=== PATIENT | male | born 1940 | race Caucasian/White ===

== ENCOUNTER 2017-12-03 02:39 | Inpatient (IN) | payer MEDICARE, MEDICAID ==
[2017-12-03] MEDS ORDERED: Magnesium Sulfate 1 gm in D5W 1 GM/100 ML BAG IVPB ONE (02:54)
[2017-12-03] MEDS ORDERED: Albuterol-Ipratrop 3 mg / 0.5 (3 ml) UD INH STA ×2 (02:54)
[2017-12-03] MEDS ORDERED: Albuterol-Ipratrop 3 mg / 0.5 (3 ml) UD ONE (03:01)
[2017-12-03] MEDS ORDERED: Magnesium Sulfate 1 gm in D5W 2 GM/200 ML BAG IVPB ONE (03:02)
[2017-12-03 03:31] LABS: BASO # 0.1 K/uL (0.0-0.2); BASO % 0.5 % (0.0-2.0); EOS # 1.1 K/uL (0.0-0.7); EOS % 8.7 % (0.0-4.0); HEMOGLOBIN 14.8 g/dL (12.0-18.0); LYMPH # 2.7 K/uL (1.0-4.3); LYMPH % 21.9 % (20.0-40.0); MEAN CELL VOLUME 94.1 fL (80.0-94.0); MEAN CORPUSCULAR HEMOGLOBIN 32.7 pg (27.0-31.0); MEAN CORPUSCULAR HGB CONC 34.8 g/dL (33.0-37.0); MEAN PLATELET VOLUME 8.2 fL (7.2-11.7); MONO % 7.9 % (0.0-10.0); NEUT # 7.5 K/uL (1.8-7.0); RBC 4.53 Mil/uL (4.40-5.90); RED CELL DISTRIBUTION WIDTH 12.9 % (11.5-14.5); WHITE BLOOD COUNT 12.3 K/uL (4.8-10.8)
--- NOTE | 2017-12-03 03:39 | C.PDOC ---
History Of Present Illness 77 y/o male, with Hx of asthma and COPD, BIBA to the ED complaining of worsening shortness of breath over the last 4 hours. The patient reports using albuterol inhaler at home with no relief. He has been wheezing and has been having trouble speaking in full sentences. The patient denies any chest pain, productive cough or associated fever. Medications were reviewed in ED by Physician Time Seen by Provider: 12/03/17 02:53 Chief Complaint (Nursing): Shortness Of Breath History Per: Patient History/Exam Limitations: no limitations Onset/Duration Of Symptoms: Hrs Current Symptoms Are (Timing): Still Present Current Respiratory Medications: Albuterol Associated Symptoms: denies: Fever, Chest Pain, Productive Cough Recent travel outside of the [place]: Yes Past Medical History Reviewed: Historical Data, Nursing Documentation, Vital Signs Vital Signs: Last Vital Signs Temp 98.9 F 12/03/17 02:47 Pulse 80 12/03/17 05:36 Resp 16 12/03/17 05:36 BP 130/80 12/03/17 05:36 Pulse Ox 96 12/03/17 05:36 - Medical History PMH: Anxiety, Asthma, HTN Other Surgeries: Cardiac Catherterization in 2003 Family History: States: Unknown Family Hx - Social History Hx Tobacco Use: No Hx Alcohol Use: No Hx Substance Use: No - Immunization History Hx Tetanus Toxoid Vaccination: Yes Hx Influenza Vaccination: Yes Hx Pneumococcal Vaccination: Yes Review Of Systems Except As Marked, All Systems Reviewed And Found Negative. Constitutional: Negative for: Fever Eyes: Negative for: Conjunctivae Inflammation ENT: Negative for: Ear Pain, Ear Discharge Cardiovascular: Negative for: Chest Pain, Palpitations, Orthopnea, Paroxysmal Noc. Dyspnea, Edema Respiratory: Positive for: Shortness of Breath, SOB with Excertion, Wheezing. Negative for: Cough, Pleuritic Pain, Sputum Gastrointestinal: Negative for: Nausea, Vomiting, Diarrhea Genitourinary: Negative for: Dysuria Musculoskeletal: Negative for: Neck Pain Skin: Negative for: Rash Neurological: Negative for: Weakness, Numbness, Dizziness Psych: Negative for: Anxiety Physical Exam - Physical Exam Appears: Well, Non-toxic, In Acute Distress Skin: Normal Color, Warm, Dry Head: Atraumatic, Normacephalic Eye(s): bilateral: Normal Inspection, PERRL, EOMI Ear(s): Bilateral: Normal Nose: Normal Oral Mucosa: Moist Lips: Normal Appearing Throat: Normal Neck: Normal Chest: Symmetrical Cardiovascular: Rhythm Regular, No Murmur Respiratory: No Rales, No Rhonchi, Wheezing (diffuse expiratory course wheezing) Gastrointestinal/Abdominal: Bowel Sounds, No Tenderness, No Distention Back: Normal Inspection Male Genital: Normal Inspection Extremity: Bilateral: Atraumatic, No Pedal Edema, Normal Color And Temperature, Normal ROM Neurological/Psych: Oriented x3, Normal Speech ED Course And Treatment - Laboratory Results Result Diagrams: 12/03/17 03:08 12/03/17 03:08 O2 Sat by Pulse Oximetry: 96 (RA) Pulse Ox Interpretation: Normal Medical Decision Making Medical Decision Making: Impression: 77 y/o male with HX of asthma and COPD complaining of worsening SOB Plan: --EKG --B-Type natriuretic --CMP --Digoxin --Lipid Panel --Magnesium --Troponin I --CBC --Chest X-Ray --Albuterol --Magnesium Sulfate --Nebulizer treatment --moxifloxacin WBC: 12 X-Ray suspicious for pneumonia 0524: spoke to hospitalist who agreed on admission Disposition Counseled Patient/Family Regarding: Diagnosis - Disposition Disposition: HOSPITALIZED Disposition Time: 06:04 Condition: GOOD - Clinical Impression Clinical Impression: Chr obstructive pulmonary disease w/ acute lower respiratory infxn - PA / [employer] / Resident Statement MD/DO has reviewed & agrees with the documentation as recorded. - Scribe Statement The provider has reviewed the documentation as recorded by the Scribe (Amelia Bray) All medical record entries made by the Scribe were at my direction and personally dictated by me. I have reviewed the chart and agree that the record accurately reflects my personal performance of the history, physical exam, medical decision making, and the department course for this patient. I have also personally directed, reviewed, and agree with the discharge instructions and disposition.
[2017-12-03] MEDS ORDERED: Moxifloxacin IV 400mg/250ml NS 400 MG/250 ML BAG IVPB ONE (04:31)
[2017-12-03 05:17] LABS: ALB/GLOB RATIO 1.2 (1.0-2.1); ALBUMIN 4.1 g/dL (3.5-5.0); ALT/SGPT 50 U/L (21-72); AST/SGOT 52 U/L (17-59); BLOOD UREA NITROGEN 22 mg/dL (9-20); CALCIUM 9.5 mg/dl (8.6-10.4); GFR NON-AFRICAN AMERICAN 49; HDL CHOLESTEROL 31 mg/dL (30-70)
[2017-12-03 05:40] LABS: B-TYPE NATRIURETIC PEPTIDE 73.5 pg/mL (0-900); LDL CHOLESTEROL 71 mg/dL (0-129)
[2017-12-03 06:35] VITALS: RESP 20
--- NOTE | 2017-12-03 09:42 | CP.PCM.HP ---
<Dashawn Sarmiento - Last Filed: 12/03/17 12:45> History of Present Illness - History of Present Illness History of Present Illness: 77yo male with a PMH of asthma, anxiety, HTN, Cardiac cath in 2004, BPH, presents to the ED with 3 days of worsening cough and SOB. Pt says he was cleaning his house with the symptoms starting soon after. Pt reports white phlegm with the cough and a non-radiating substernal chest tightness worse with exertion. Pt has been short of breath for the past three days and has been waiting to see him PMD for an appointment on 12/04 but presented to the ER today. Pt tried using his "pump and machine" but got little relief. Pt is unable to provide a thorough history, he is not able to elaborate on his prior procedures or PMHx. Pt is only aware of taking his "daytime and night pills" and cannot name them. Pt provided a number to his pharmacy that is no longer in business. 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 Proxy: Son Terell Sevilla [phone] full code Present on Admission - Present on Admission Any Indicators Present on Admission: No Review of Systems - Constitutional Constitutional: As Per HPI - EENT Eyes: As Per HPI Ears: As Per HPI Nose/Mouth/Throat: As Per HPI - Cardiovascular Cardiovascular: As Per HPI - Respiratory Respiratory: As Per HPI - Gastrointestinal Gastrointestinal: As Per HPI - Genitourinary Genitourinary: As Per HPI - Musculoskeletal Musculoskeletal: As Per HPI - Integumentary Integumentary: As Per HPI - Neurological Neurological: As Per HPI - Psychiatric Psychiatric: As Per HPI - Endocrine Endocrine: As Per HPI - Hematologic/Lymphatic Hematologic: As Per HPI Past Patient History - Infectious Disease Hx of Infectious Diseases: None - Past Social History Smoking Status: Smoker Mannt Status Unknown - CARDIAC Hx Hypertension: Yes Other/Comment: cardiac cath with Dr Anderson in 2005 - PULMONARY Hx Asthma: Yes - MUSCULOSKELETAL/RHEUMATOLOGICAL Hx Falls: No - GENITOURINARY/GYNECOLOGICAL Hx Genitourinary Disorders: Yes Hx Prostate Problems: Yes - PSYCHIATRIC Hx Substance Use: No - SURGICAL HISTORY Hx Surgeries: Yes Hx Cardiac Catheterization: Yes (2003) - ANESTHESIA Hx Anesthesia: Yes Hx Anesthesia Reactions: No Meds Allergies/Adverse Reactions: Allergies Allergy/AdvReac Type Severity Reaction Status Date / Time No Known Allergies Allergy Verified 04/14/15 06:32 Physical Exam - Constitutional Appears: Non-toxic, No Acute Distress, Confused - Head Exam Head Exam: ATRAUMATIC, NORMAL INSPECTION - Eye Exam Eye Exam: EOMI, Normal appearance - ENT Exam ENT Exam: Mucous Membranes Moist - Neck Exam Neck exam: Negative for: Lymphadenopathy, Thyromegaly - Respiratory Exam Respiratory Exam: Wheezes (Bilateral, inspiratory). absent: Chest Wall Tenderness - Cardiovascular Exam Cardiovascular Exam: RRR, +S1, +S2 - GI/Abdominal Exam GI & Abdominal Exam: Normal Bowel Sounds, Soft. absent: Hyperactive Bowel Sounds, Tenderness - Extremities Exam Extremities exam: Positive for: normal inspection, pedal pulses present. Negative for: calf tenderness, pedal edema, tenderness - Back Exam Back exam: NORMAL INSPECTION - Neurological Exam Neurological exam: Alert, CN II-XII Intact, Oriented x3 Additional comments: shuffling gait resting tremor intention tremor positive forehead tap blink reflex neg goddard's - Psychiatric Exam Psychiatric exam: Normal Affect, Normal Mood Additional comments: poor cognition/ recall - Skin Additional comments: no cyanosis normal capillary refill no clubbing of nails Results - Vital Signs Recent Vital Signs: Last Vital Signs Temp 97.6 F 12/03/17 06:34 Pulse 86 12/03/17 06:34 Resp 20 12/03/17 06:34 BP 133/77 12/03/17 06:34 Pulse Ox 96 12/03/17 06:34 - Labs Result Diagrams: 12/03/17 03:08 12/03/17 03:08 Labs: Laboratory Results - last 24 hr 12/03/17 12/03/17 12/03/17 03:08 03:08 03:39 WBC 12.3 H RBC 4.53 Hgb 14.8 Hct 42.7 MCV 94.1 H MCH 32.7 H MCHC 34.8 RDW 12.9 Plt Count 246 MPV 8.2 Neut % (Auto) 61.0 Lymph % (Auto) 21.9 Reeves % (Auto) 7.9 Eos % (Auto) 8.7 H Baso % (Auto) 0.5 Neut # (Auto) 7.5 H Lymph # (Auto) 2.7 Reeves # (Auto) 1.0 H Eos # (Auto) 1.1 H Baso # (Auto) 0.1 Sodium 140 Potassium 4.9 Chloride 102 Carbon Dioxide 26 Anion Gap 18 BUN 22 H Creatinine 1.4 Est GFR ( Amer) 59 Est GFR (Non-Af Amer) 49 Random Glucose 105 Calcium 9.5 Magnesium 1.8 Total Bilirubin 0.5 AST 52 ALT 50 Alkaline Phosphatase 74 Troponin I < 0.0120 NT-Pro-B Natriuret Pep 73.5 Total Protein 7.4 Albumin 4.1 Globulin 3.4 Albumin/Globulin Ratio 1.2 Triglycerides 178 H Cholesterol 151 LDL Cholesterol Direct 71 HDL Cholesterol 31 Digoxin 0.7 L Assessment & Plan - Assessment and Plan (Free Text) Assessment: 77M with a PMHx of astham, anxiety HTN, cardiac cath in 2004 presents with acute asthmatic exacerbation. Plan: Asthma with possible RLL Pneumonia -WBC 12.3 : eosinophillic -Solumedrol 125mg IVP today, 60mg q12 tmrw -duonebs q6 9am-9pm -duonebs PRN tmrw 12/04 3pm -Spiriva 2 puffs -Singulair -Azithromycin 500mg daily IVP -Rocephin 1g daily IVP -Pulm consulted: Dr. Young -Outpt PFT -f/u flu, strep, mycobac, legionella -f/u blood cultures Chronic HTN: -hold metoprolol -Lisinopril 10mg PO daily -HCTZ 12.5mg PO daily Hx of Low Vit D -F/u Vit D levels -hold supplement BPH: -Dutoseride .5mg PO daily -Flomax .4mg PO Daily Hx of Cardiac Cath 2003 -Dr Anderson consulted for more info regarding cardiac cath -f/u digoxin level and confirm indication for medication Anxiety -Klonopin PRN Tremor/gait disturbance -neuro consulted Dr Aceves Hx of Gout -allopurinol 100mg PO daily PPX -DVT Risk of 3, age plus possible pna -Hepain 5000u sc q8 -SCDs -Heart Healthy 2g Na Low carb <Dhruv Boss - Last Filed: 12/03/17 19:16> Results - Vital Signs Recent Vital Signs: Last Vital Signs Temp 98.3 F 12/03/17 15:00 Pulse 100 H 12/03/17 15:53 Resp 20 12/03/17 15:00 BP 134/70 12/03/17 15:00 Pulse Ox 94 L 12/03/17 15:00 - Labs Result Diagrams: 12/03/17 03:08 12/03/17 03:08 Labs: Laboratory Results - last 24 hr 12/03/17 12/03/17 12/03/17 03:08 03:08 03:39 WBC 12.3 H RBC 4.53 Hgb 14.8 Hct 42.7 MCV 94.1 H MCH 32.7 H MCHC 34.8 RDW 12.9 Plt Count 246 MPV 8.2 Neut % (Auto) 61.0 Lymph % (Auto) 21.9 Reeves % (Auto) 7.9 Eos % (Auto) 8.7 H Baso % (Auto) 0.5 Neut # (Auto) 7.5 H Lymph # (Auto) 2.7 Reeves # (Auto) 1.0 H Eos # (Auto) 1.1 H Baso # (Auto) 0.1 D-Dimer, Quantitative Puncture Site pCO2 pO2 HCO3 ABG pH ABG Total CO2 ABG O2 Saturation ABG Base Excess Luis E Test Liter Flow Sodium 140 Potassium 4.9 Chloride 102 Carbon Dioxide 26 Anion Gap 18 BUN 22 H Creatinine 1.4 Est GFR ( Amer) 59 Est GFR (Non-Af Amer) 49 Random Glucose 105 Calcium 9.5 Magnesium 1.8 Total Bilirubin 0.5 AST 52 ALT 50 Alkaline Phosphatase 74 Troponin I < 0.0120 NT-Pro-B Natriuret Pep 73.5 Total Protein 7.4 Albumin 4.1 Globulin 3.4 Albumin/Globulin Ratio 1.2 Triglycerides 178 H Cholesterol 151 LDL Cholesterol Direct 71 HDL Cholesterol 31 Digoxin 0.7 L Influenza Typ A,B (EIA) Ur L.pneumophila Ag Mycoplasma pneumon IgM 12/03/17 12/03/17 12/03/17 09:52 11:50 12:30 WBC RBC Hgb Hct MCV MCH MCHC RDW Plt Count MPV Neut % (Auto) Lymph % (Auto) Reeves % (Auto) Eos % (Auto) Baso % (Auto) Neut # (Auto) Lymph # (Auto) Reeves # (Auto) Eos # (Auto) Baso # (Auto) D-Dimer, Quantitative Puncture Site Lb pCO2 36 pO2 106 H HCO3 23.4 ABG pH 7.40 ABG Total CO2 23.4 ABG O2 Saturation 99.0 H ABG Base Excess -2.0 Luis E Test Na Liter Flow 3.0 Sodium Potassium Chloride Carbon Dioxide Anion Gap BUN Creatinine Est GFR ( Amer) Est GFR (Non-Af Amer) Random Glucose Calcium Magnesium Total Bilirubin AST ALT Alkaline Phosphatase Troponin I NT-Pro-B Natriuret Pep Total Protein Albumin Globulin Albumin/Globulin Ratio Triglycerides Cholesterol LDL Cholesterol Direct HDL Cholesterol Digoxin Influenza Typ A,B (EIA) Negative for flu a/b Ur L.pneumophila Ag Mycoplasma pneumon IgM Negative 12/03/17 12/03/17 13:24 13:31 WBC RBC Hgb Hct MCV MCH MCHC RDW Plt Count MPV Neut % (Auto) Lymph % (Auto) Reeves % (Auto) Eos % (Auto) Baso % (Auto) Neut # (Auto) Lymph # (Auto) Reeves # (Auto) Eos # (Auto) Baso # (Auto) D-Dimer, Quantitative 231 Puncture Site pCO2 pO2 HCO3 ABG pH ABG Total CO2 ABG O2 Saturation ABG Base Excess Luis E Test Liter Flow Sodium Potassium Chloride Carbon Dioxide Anion Gap BUN Creatinine Est GFR ( Amer) Est GFR (Non-Af Amer) Random Glucose Calcium Magnesium Total Bilirubin AST ALT Alkaline Phosphatase Troponin I NT-Pro-B Natriuret Pep Total Protein Albumin Globulin Albumin/Globulin Ratio Triglycerides Cholesterol LDL Cholesterol Direct HDL Cholesterol Digoxin Influenza Typ A,B (EIA) Ur L.pneumophila Ag Negative Mycoplasma pneumon IgM Attending/Attestation - Attestation I have personally seen and examined this patient.: Yes I have fully participated in the care of the patient.: Yes I have reviewed all pertinent clinical information: Yes Notes (Text): 12/03/17 19:12 Patient was seen shortly after the resident. History, Physical, Assessment and Plan and orders were gone over in detail with the resident. Dhruv Boss D.O.
--- NOTE | 2017-12-03 11:56 | RAD ---
Chest x-ray single frontal view History: Shortness of breath. Comparison: 04/14/2015 Findings: Biapical pleural thickening with upper lobe granulomatous changes. Diffuse increased interstitial lung markings. Mild patchy increased markings at the lung bases. Tortuous ectatic aorta. Mild cardiomegaly. Right hilar prominence. Calcification at the aortic knob. Degenerative changes in the spine and shoulders. Impression: Biapical pleural thickening with upper lobe granulomatous changes. Diffuse increased interstitial lung markings. Mild patchy increased markings at the lung bases. Tortuous ectatic aorta. Mild cardiomegaly. Right hilar prominence. Calcification at the aortic knob.
[2017-12-03 12:06] LABS: ARTERIAL BLOOD GAS HCO3 23.4 mmol/L (21-28); ARTERIAL BLOOD GAS PCO2 36 mm/Hg (35-45); ARTERIAL BLOOD GAS PO2 106 mm/Hg (80-100); ARTERIAL BLOOD GAS TCO2 23.4 mmol/L (22-28)
[2017-12-03] MEDS: Azithromycin 500 MG in Sodium Chloride 0.9% 250 ML IVPB SCH (12:28)
--- NOTE | 2017-12-03 13:29 | RAD ---
Chest x-ray two views History: Cough and pneumonia. Comparison: 12/03/2017 Findings: Biapical pleural thickening with upper lobe granulomatous changes. Small nodular density at the right lung base may represent prominent vessel on end. Hyperinflation suggestive for COPD and or emphysematous changes. Diffuse increased interstitial lung markings. Enlarged ectatic aorta. Suggestion of a possible hiatal hernia. Mild cardiomegaly. Degenerative changes in the spine and shoulders. Chronic fracture deformities of several left lateral ribs. Impression: Biapical pleural thickening with upper lobe granulomatous changes. Small nodular density at the right lung base may represent prominent vessel on end. Hyperinflation suggestive for COPD and or emphysematous changes. Diffuse increased interstitial lung markings. Enlarged ectatic aorta. Suggestion of a possible hiatal hernia. Mild cardiomegaly. Degenerative changes in the spine and shoulders. Chronic fracture deformities of several left lateral ribs.
--- NOTE | 2017-12-03 13:56 | CP.PCM.CON ---
History of Present Illness - History of Present Illness History of Present Illness: reason for consultation: shortness of breath 77-year-old male with history of asthma, anxiety, hypertension who presented to emergency room with worsening shortness of breath and cough of 3-4 day duration. Cough is productive of clear phlegm and associated with chest tightness. Denies fever chills. audible wheeze noted. 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 Review of Systems - Review of Systems All systems: reviewed and no additional remarkable complaints except (shortness of breath and cough) Past Patient History - Infectious Disease Hx of Infectious Diseases: None - Past Social History Smoking Status: Smoker Currrent Status Unknown - CARDIAC Hx Hypertension: Yes Other/Comment: cardiac cath with Dr Anderson in 2004 - PULMONARY Hx Asthma: Yes - MUSCULOSKELETAL/RHEUMATOLOGICAL Hx Falls: No - GENITOURINARY/GYNECOLOGICAL Hx Genitourinary Disorders: Yes Hx Prostate Problems: Yes - PSYCHIATRIC Hx Substance Use: No - SURGICAL HISTORY Hx Surgeries: Yes Hx Cardiac Catheterization: Yes (2003) - ANESTHESIA Hx Anesthesia: Yes Hx Anesthesia Reactions: No Meds Allergies/Adverse Reactions: Allergies Allergy/AdvReac Type Severity Reaction Status Date / Time No Known Allergies Allergy Verified 04/14/15 06:32 - Medications Medications: Current Medications Albuterol/Ipratropium (Duoneb 3 Mg/0.5 Mg (3 Ml) Ud) 3 ml INH RQ6 [facility] Stop: 12/04/17 09:10 Albuterol/Ipratropium (Duoneb 3 Mg/0.5 Mg (3 Ml) Ud) 3 ml INH RQ6 PRN PRN Reason: Shortness of Breath Allopurinol (Zyloprim) 100 mg PO DAILY [facility] Last Admin: 12/03/17 11:31 Dose: 100 mg Clonazepam (Klonopin) 0.5 mg PO BID PRN PRN Reason: Anxiety Finasteride (Proscar) 5 mg PO DAILY [facility] Last Admin: 12/03/17 12:28 Dose: 5 mg Heparin Sodium (Porcine) (Heparin) 5,000 units SC Q8 [facility] Hydrochlorothiazide (Microzide) 12.5 mg PO DAILY [facility] Last Admin: 12/03/17 11:31 Dose: 12.5 mg Azithromycin 500 mg/ Sodium (Chloride) 250 mls @ 166.667 mls/hr IVPB DAILY [facility]I PRN Reason: Protocol Last Admin: 12/03/17 12:28 Dose: 166.667 mls/hr Ceftriaxone Sodium 1 gm/ (Sodium Chloride) 100 mls @ 200 mls/hr IVPB Q12H [facility]I PRN Reason: Protocol Last Admin: 12/03/17 11:31 Dose: 200 mls/hr Lisinopril (Zestril) 10 mg PO DAILY [facility] Last Admin: 12/03/17 11:30 Dose: 10 mg Methylprednisolone (Solu-Medrol) 60 mg IVP Q12H [facility] Montelukast Sodium (Singulair) 10 mg PO HS [facility] Tamsulosin HCl (Flomax) 0.4 mg PO DAILY [facility] Last Admin: 12/03/17 11:30 Dose: 0.4 mg Physical Exam - Head Exam Head Exam: ATRAUMATIC, NORMOCEPHALIC - ENT Exam ENT Exam: Mucous Membranes Moist - Neck Exam Neck exam: Positive for: Normal Inspection - Respiratory Exam Respiratory Exam: Rhonchi, Wheezes - Cardiovascular Exam Cardiovascular Exam: REGULAR RHYTHM - GI/Abdominal Exam GI & Abdominal Exam: Normal Bowel Sounds, Soft - Extremities Exam Extremities exam: Positive for: normal inspection - Neurological Exam Neurological exam: Alert, Oriented x3 Results - Vital Signs Recent Vital Signs: Last Vital Signs Temp 97.6 F 12/03/17 06:34 Pulse 86 12/03/17 06:34 Resp 20 12/03/17 06:34 BP 133/77 12/03/17 06:34 Pulse Ox 96 12/03/17 06:34 - Labs Result Diagrams: 12/03/17 03:08 12/03/17 03:08 Labs: Laboratory Results - last 24 hr 12/03/17 12/03/17 12/03/17 03:08 03:08 03:39 WBC 12.3 H RBC 4.53 Hgb 14.8 Hct 42.7 MCV 94.1 H MCH 32.7 H MCHC 34.8 RDW 12.9 Plt Count 246 MPV 8.2 Neut % (Auto) 61.0 Lymph % (Auto) 21.9 [place] % (Auto) 7.9 Eos % (Auto) 8.7 H Baso % (Auto) 0.5 Neut # (Auto) 7.5 H Lymph # (Auto) 2.7 [place] # (Auto) 1.0 H Eos # (Auto) 1.1 H Baso # (Auto) 0.1 D-Dimer, Quantitative Puncture Site pCO2 pO2 HCO3 ABG pH ABG Total CO2 ABG O2 Saturation ABG Base Excess Luis E Test Liter Flow Sodium 140 Potassium 4.9 Chloride 102 Carbon Dioxide 26 Anion Gap 18 BUN 22 H Creatinine 1.4 Est GFR ( Amer) 59 Est GFR (Non-Af Amer) 49 Random Glucose 105 Calcium 9.5 Magnesium 1.8 Total Bilirubin 0.5 AST 52 ALT 50 Alkaline Phosphatase 74 Troponin I < 0.0120 NT-Pro-B Natriuret Pep 73.5 Total Protein 7.4 Albumin 4.1 Globulin 3.4 Albumin/Globulin Ratio 1.2 Triglycerides 178 H Cholesterol 151 LDL Cholesterol Direct 71 HDL Cholesterol 31 Digoxin 0.7 L Influenza Typ A,B (EIA) 12/03/17 12/03/17 12/03/17 11:50 12:30 13:24 WBC RBC Hgb Hct MCV MCH MCHC RDW Plt Count MPV Neut % (Auto) Lymph % (Auto) [place] % (Auto) Eos % (Auto) Baso % (Auto) Neut # (Auto) Lymph # (Auto) [place] # (Auto) Eos # (Auto) Baso # (Auto) D-Dimer, Quantitative 231 Puncture Site Lb pCO2 36 pO2 106 H HCO3 23.4 ABG pH 7.40 ABG Total CO2 23.4 ABG O2 Saturation 99.0 H ABG Base Excess -2.0 Luis E Test Na Liter Flow 3.0 Sodium Potassium Chloride Carbon Dioxide Anion Gap BUN Creatinine Est GFR ( Amer) Est GFR (Non-Af Amer) Random Glucose Calcium Magnesium Total Bilirubin AST ALT Alkaline Phosphatase Troponin I NT-Pro-B Natriuret Pep Total Protein Albumin Globulin Albumin/Globulin Ratio Triglycerides Cholesterol LDL Cholesterol Direct HDL Cholesterol Digoxin Influenza Typ A,B (EIA) Negative for flu a/b Assessment & Plan (1) Asthma exacerbation Status: Acute Comment: chest x-ray consistent with hyperinflation/emphysema and diffuse instertitial markings. CAT scan of the chest. IV steroids. Nebulizer treatment. Followup ABG
[2017-12-03] MEDS: Albuterol-Ipratrop 3 mg / 0.5 (3 ml) UD INH SCH ×3 (15:51→19:46)
--- NOTE | 2017-12-03 17:04 | CP.PCM.CON ---
History of Present Illness - History of Present Illness History of Present Illness: I was asked to evaluate patient by Dr Starr. Patient is a 77 year old male with remote CAD, HTN who presents with dyspnea. Has not cardaic follow up in a number of years. The patient has dyspnea on exertion, worse with walking one block. He also has wheezing at rest. Review of Systems - Constitutional Constitutional: absent: As Per HPI, Anorexia, Chills, Daytime Sleepiness, Excessive Sweating, Fatigue, Fever, Frequent Falls, Headache, Increased Appetite , Lethargy, Malaise, Night Sweats, Snoring, Sleep Apnea, Weight Gain, Weight Loss, Weakness, Other - EENT Eyes: absent: As Per HPI, Blind Spots, Blurred Vision, Change in Vision, Decreased Night Vision, Diplopia, Discharge, Dry Eye, Exophthalmos, Floaters, Irritation, Itchy Eyes, Loss of Peripheral Vision, Pain, Photophobia, Requires Corrective Lenses, Sees Flashes, Spots in Vision, Tunnel Vision, Other Visual Disturbances, Loss of Vision, Other Ears: absent: As Per HPI, Decreased Hearing, Ear Discharge, Ear Pain, Tinnitus, Abnormal Hearing, Disequilibrium, Dizziness, Other Nose/Mouth/Throat: absent: As Per HPI, Epistaxis, Nasal Congestion, Nasal Discharge, Nasal Obstruction, Nasal Trauma, Nose Pain, Post Nasal Drip, Sinus Pain, Sinus Pressure, Bleeding Gums, Change in Voice, Dental Pain, Dry Mouth, Dysphagia, Halitosis, Hoarsness, Lip Swelling, Mouth Lesions, Mouth Pain, Odynophagia, Sore Throat, Throat Swelling, Tongue Swelling, Facial Pain, Neck Pain, Neck Mass, Other - Cardiovascular Cardiovascular: Dyspnea - Respiratory Respiratory: Dyspnea - Gastrointestinal Gastrointestinal: absent: As Per HPI, Abdominal Pain, Belching, Bloating, Change in Bowel Habits, Change in Stool Character, Coffee Ground Emesis, Constipation, Cramping, Diarrhea, Dyspepsia, Dysphagia, Early Satiety, Excessive Flatus, Fecal Incontinence, Heartburn, Hematemesis, Hematochezia, Loose Stools, Melena, Nausea, Odynophagia, Temesmus, Vomiting, Other - Genitourinary Genitourinary: absent: As Per HPI, Change in Urinary Stream, Difficulty Urinating, Dysuria, Flank Pain, Hematuria, Pyuria, Nocturia, Urinary Incontinence, Urinary Frequency, Urinary Hesitance, Urinary Urgency, Voiding Freq/Small Amts, Freq UTI, Hx Renal/Bladder Calculi, Hx /Renal Surgery, Bladder Distension, Other - Musculoskeletal Musculoskeletal: absent: As Per HPI, Abnormal Gait, Arthralgias, Atrophy, Back Pain, Deformity, Joint Swelling, Limited Range of Motion, Loss of Height, Muscle Cramps, Muscle Weakness, Myalgias, Neck Pain, Numbness, Radiating Pain into Limb, Stiffness, Tingling, Other - Integumentary Integumentary: absent: As Per HPI, Acne, Alopecia, Bleeding Lesions, Change in Hair, Change in Nails, Change in Pigmentation, Changing Lesions, Dry Skin, Erythema, Furuncle, Hirsutism, Lesions, New Lesions, Non-Healing Lesions, Photosensitivity, Pruritus, Rash, Skin Pain, Skin Ulcer, Sores, Striae, Swelling , Unusual Bruising, Wounds, Jaundice, Other - Neurological Neurological: absent: As Per HPI, Abnormal Gait, Abnormal Hearing, Abnormal Movements, Abnormal Speech, Behavioral Changes, Burning Sensations, Confusion, Convulsions, Disequilibrium, Dizziness, Numbness, Focal Weakness, Frequent Falls , Headaches, Lack of Coordination, Loss of Vision, Memory Loss, Paresthesias, Radicular Pain, Restless Legs, Sensory Deficit, Syncope, Tingling, Tremor, Vertigo, Weakness, Other Visual Disturbances, Other - Psychiatric Psychiatric: absent: As Per HPI, Abnormal Sleep Pattern, Anhedonia, Anxiety, Auditory Hallucinations, Behavioral Changes, Change in Appetite, Change in Libido, Confusion, Depression, Difficulty Concentrating, Hallucinations, Homicidal Ideation, Hopelessness, Irritability, Memory Loss, Mood Swings, Panic Attacks, Paranoia, Suicidal Ideation, Visual Hallucinations, Tactile Hallucinations, Other - Endocrine Endocrine: absent: As Per HPI, Change in Body Appearance, Change in Libido, Cold Intolorance, Deepening of Voice, Excessive Sweating, Fatigue, Flushing, Heat Intolorance, Increase in Ring/Shoe/Hat Size, Palpitations, Polydipsia, Polyphagia, Polyuria, Other - Hematologic/Lymphatic Hematologic: absent: As Per HPI, Easy Bleeding, Easy Bruising, Lymphadenopathy, Other Past Patient History - Infectious Disease Hx of Infectious Diseases: None - Past Social History Smoking Status: Smoker Currrent Status Unknown - CARDIAC Hx Hypertension: Yes Other/Comment: cardiac cath with Dr Anderson in 2005 - PULMONARY Hx Asthma: Yes - MUSCULOSKELETAL/RHEUMATOLOGICAL Hx Falls: No - GENITOURINARY/GYNECOLOGICAL Hx Genitourinary Disorders: Yes Hx Prostate Problems: Yes - PSYCHIATRIC Hx Substance Use: No - SURGICAL HISTORY Hx Surgeries: Yes Hx Cardiac Catheterization: Yes (2003) - ANESTHESIA Hx Anesthesia: Yes Hx Anesthesia Reactions: No Meds Allergies/Adverse Reactions: Allergies Allergy/AdvReac Type Severity Reaction Status Date / Time No Known Allergies Allergy Verified 04/14/15 06:32 - Medications Medications: Current Medications Albuterol/Ipratropium (Duoneb 3 Mg/0.5 Mg (3 Ml) Ud) 3 ml INH RQ6 NAI Stop: 12/04/17 09:10 Last Admin: 12/03/17 15:52 Dose: 3 ml Albuterol/Ipratropium (Duoneb 3 Mg/0.5 Mg (3 Ml) Ud) 3 ml INH RQ6 PRN PRN Reason: Shortness of Breath Allopurinol (Zyloprim) 100 mg PO DAILY [facility] Last Admin: 12/03/17 11:31 Dose: 100 mg Clonazepam (Klonopin) 0.5 mg PO BID PRN PRN Reason: Anxiety Finasteride (Proscar) 5 mg PO DAILY [facility] Last Admin: 12/03/17 12:28 Dose: 5 mg Heparin Sodium (Porcine) (Heparin) 5,000 units SC Q8 [facility] Last Admin: 12/03/17 14:59 Dose: 5,000 units Hydrochlorothiazide (Microzide) 12.5 mg PO DAILY [facility] Last Admin: 12/03/17 11:31 Dose: 12.5 mg Azithromycin 500 mg/ Sodium (Chloride) 250 mls @ 166.667 mls/hr IVPB DAILY [facility] PRN Reason: Protocol Last Admin: 12/03/17 12:28 Dose: 166.667 mls/hr Ceftriaxone Sodium 1 gm/ (Sodium Chloride) 100 mls @ 200 mls/hr IVPB Q12H [facility] PRN Reason: Protocol Last Admin: 12/03/17 11:31 Dose: 200 mls/hr Lisinopril (Zestril) 10 mg PO DAILY [facility] Last Admin: 12/03/17 11:30 Dose: 10 mg Methylprednisolone (Solu-Medrol) 60 mg IVP Q6 [facility] Montelukast Sodium (Singulair) 10 mg PO HS [facility] Tamsulosin HCl (Flomax) 0.4 mg PO DAILY [facility] Last Admin: 12/03/17 11:30 Dose: 0.4 mg Physical Exam - Constitutional Appears: Non-toxic - Head Exam Head Exam: NORMAL INSPECTION - Eye Exam Eye Exam: Normal appearance - ENT Exam ENT Exam: Mucous Membranes Moist - Neck Exam Neck exam: Positive for: Full Rom - Respiratory Exam Respiratory Exam: NORMAL BREATHING PATTERN - Cardiovascular Exam Cardiovascular Exam: REGULAR RHYTHM - GI/Abdominal Exam GI & Abdominal Exam: Normal Bowel Sounds - Rectal Exam Rectal Exam: Deferred - Extremities Exam Extremities exam: Negative for: pedal edema - Back Exam Back exam: NORMAL INSPECTION - Neurological Exam Neurological exam: Alert, Oriented x3 - Psychiatric Exam Psychiatric exam: Normal Affect - Skin Skin Exam: Normal Color Results - Vital Signs Recent Vital Signs: Last Vital Signs Temp 98.3 F 12/03/17 15:00 Pulse 100 H 12/03/17 15:53 Resp 20 12/03/17 15:00 BP 134/70 12/03/17 15:00 Pulse Ox 94 L 12/03/17 15:00 - Labs Result Diagrams: 12/03/17 03:08 12/03/17 03:08 Labs: Laboratory Results - last 24 hr 12/03/17 12/03/17 12/03/17 03:08 03:08 03:39 WBC 12.3 H RBC 4.53 Hgb 14.8 Hct 42.7 MCV 94.1 H MCH 32.7 H MCHC 34.8 RDW 12.9 Plt Count 246 MPV 8.2 Neut % (Auto) 61.0 Lymph % (Auto) 21.9 [place] % (Auto) 7.9 Eos % (Auto) 8.7 H Baso % (Auto) 0.5 Neut # (Auto) 7.5 H Lymph # (Auto) 2.7 [place] # (Auto) 1.0 H Eos # (Auto) 1.1 H Baso # (Auto) 0.1 D-Dimer, Quantitative Puncture Site pCO2 pO2 HCO3 ABG pH ABG Total CO2 ABG O2 Saturation ABG Base Excess Luis E Test Liter Flow Sodium 140 Potassium 4.9 Chloride 102 Carbon Dioxide 26 Anion Gap 18 BUN 22 H Creatinine 1.4 Est GFR ( Amer) 59 Est GFR (Non-Af Amer) 49 Random Glucose 105 Calcium 9.5 Magnesium 1.8 Total Bilirubin 0.5 AST 52 ALT 50 Alkaline Phosphatase 74 Troponin I < 0.0120 NT-Pro-B Natriuret Pep 73.5 Total Protein 7.4 Albumin 4.1 Globulin 3.4 Albumin/Globulin Ratio 1.2 Triglycerides 178 H Cholesterol 151 LDL Cholesterol Direct 71 HDL Cholesterol 31 Digoxin 0.7 L Influenza Typ A,B (EIA) Ur L.pneumophila Ag Mycoplasma pneumon IgM 12/03/17 12/03/17 12/03/17 09:52 11:50 12:30 WBC RBC Hgb Hct MCV MCH MCHC RDW Plt Count MPV Neut % (Auto) Lymph % (Auto) [place] % (Auto) Eos % (Auto) Baso % (Auto) Neut # (Auto) Lymph # (Auto) [place] # (Auto) Eos # (Auto) Baso # (Auto) D-Dimer, Quantitative Puncture Site Lb pCO2 36 pO2 106 H HCO3 23.4 ABG pH 7.40 ABG Total CO2 23.4 ABG O2 Saturation 99.0 H ABG Base Excess -2.0 Luis E Test Na Liter Flow 3.0 Sodium Potassium Chloride Carbon Dioxide Anion Gap BUN Creatinine Est GFR ( Amer) Est GFR (Non-Af Amer) Random Glucose Calcium Magnesium Total Bilirubin AST ALT Alkaline Phosphatase Troponin I NT-Pro-B Natriuret Pep Total Protein Albumin Globulin Albumin/Globulin Ratio Triglycerides Cholesterol LDL Cholesterol Direct HDL Cholesterol Digoxin Influenza Typ A,B (EIA) Negative for flu a/b Ur L.pneumophila Ag Mycoplasma pneumon IgM Negative 12/03/17 12/03/17 13:24 13:31 WBC RBC Hgb Hct MCV MCH MCHC RDW Plt Count MPV Neut % (Auto) Lymph % (Auto) [place] % (Auto) Eos % (Auto) Baso % (Auto) Neut # (Auto) Lymph # (Auto) [place] # (Auto) Eos # (Auto) Baso # (Auto) D-Dimer, Quantitative 231 Puncture Site pCO2 pO2 HCO3 ABG pH ABG Total CO2 ABG O2 Saturation ABG Base Excess Luis E Test Liter Flow Sodium Potassium Chloride Carbon Dioxide Anion Gap BUN Creatinine Est GFR ( Amer) Est GFR (Non-Af Amer) Random Glucose Calcium Magnesium Total Bilirubin AST ALT Alkaline Phosphatase Troponin I NT-Pro-B Natriuret Pep Total Protein Albumin Globulin Albumin/Globulin Ratio Triglycerides Cholesterol LDL Cholesterol Direct HDL Cholesterol Digoxin Influenza Typ A,B (EIA) Ur L.pneumophila Ag Negative Mycoplasma pneumon IgM - EKG Data EKG Interpreted by: Myself EKG shows normal: Sinus rhythm Assessment & Plan (1) CAD (coronary artery disease) Assessment and Plan: remote history. no current angina. recommend echocardiogram to assess LV function. Status: Acute (2) HTN (hypertension) Assessment and Plan: blood pressure control. Status: Acute
[2017-12-03] MEDS: MethylPREDNISolone 40 mg Vial IVP SCH (17:39)
[2017-12-03] MEDS ORDERED: MethylPREDNISolone 40 mg Vial IVP SCH (22:00)
[2017-12-04] MEDS: MethylPREDNISolone 40 mg Vial IVP SCH ×4 (00:43→17:41)
[2017-12-04] MEDS: Albuterol-Ipratrop 3 mg / 0.5 (3 ml) UD INH SCH ×2 (01:24→07:44)
[2017-12-04 08:06] LABS: BASO % 0.2 % (0.0-2.0); HEMOGLOBIN 13.4 g/dL (12.0-18.0); LYMPH # 1.6 K/uL (1.0-4.3); LYMPH % 12.3 % (20.0-40.0); MEAN CELL VOLUME 94.3 fL (80.0-94.0); MEAN CORPUSCULAR HEMOGLOBIN 32.8 pg (27.0-31.0); MEAN CORPUSCULAR HGB CONC 34.8 g/dL (33.0-37.0); MONO # 0.5 K/uL (0.0-0.8); MONO % 3.7 % (0.0-10.0); NEUT # 10.7 K/uL (1.8-7.0); NEUT % 83.8 % (50.0-75.0); RBC 4.08 Mil/uL (4.40-5.90); RED CELL DISTRIBUTION WIDTH 13.1 % (11.5-14.5); WHITE BLOOD COUNT 12.8 K/uL (4.8-10.8)
[2017-12-04 08:50] LABS: ALB/GLOB RATIO 1.2 (1.0-2.1); ALBUMIN 3.9 g/dL (3.5-5.0); CALCIUM 8.7 mg/dl (8.6-10.4)
[2017-12-04] MEDS: Azithromycin 500 MG in Sodium Chloride 0.9% 250 ML IVPB SCH (10:40)
--- NOTE | 2017-12-04 12:57 | CP.PCM.CON ---
History of Present Illness - History of Present Illness History of Present Illness: PGY 1 Consult note for Neurologist Dr. Aceves. 77 male w/ PMHx of asthma, HTN, Cardiac cath in 2004, BPH admitted to hospital for acute asthma exacerbation. Neurology consulted for patient having hand tremor for the past 3 months. Patient states tremor began suddenly 3 months ago and is primarily in the upper extremities. Patient cannot recall alleviating factors and states it is present primarily all day. Patient denies recent head trauma/ falls. Patient admits to heavy drinking for several years but quit about ten years ago, and now only drinks occasionally. Patient also states his mother had similar hand tremors as well. Patient denies chest pain, N/V, F/C, headache, vision changes. Patient does have occasional SOB. PMD: Dr. Silva PMHx: Asthma, Anxiety, HTN, BPH, Cardiac cath 2004 PSHx: None Allergies: NKDA FamHx: Mom, 2/2 cardiac issues (pt unable to specify), mother also had hand tremor; Dad - Unknown medical history Social: denies tobacco, for ETOH abuse (3-5 beers/day, everyday for approximately 30 years), denies other drugs Review of Systems - Constitutional Constitutional: absent: Chills, Fever - EENT Eyes: absent: Blurred Vision, Change in Vision - Cardiovascular Cardiovascular: absent: Chest Pain - Respiratory Respiratory: Cough, Wheezing - Gastrointestinal Gastrointestinal: absent: Abdominal Pain, Cramping - Musculoskeletal Musculoskeletal: absent: Arthralgias, Myalgias - Neurological Neurological: absent: Abnormal Gait, Headaches - Endocrine Endocrine: absent: Excessive Sweating Past Patient History - Infectious Disease Hx of Infectious Diseases: None - Past Social History Smoking Status: Smoker Currrent Status Unknown - CARDIAC Hx Hypertension: Yes Other/Comment: cardiac cath with Dr Anderson in 2004 - PULMONARY Hx Asthma: Yes - MUSCULOSKELETAL/RHEUMATOLOGICAL Hx Falls: No - GENITOURINARY/GYNECOLOGICAL Hx Genitourinary Disorders: Yes Hx Prostate Problems: Yes - PSYCHIATRIC Hx Substance Use: No - SURGICAL HISTORY Hx Surgeries: Yes Hx Cardiac Catheterization: Yes (2003) - ANESTHESIA Hx Anesthesia: Yes Hx Anesthesia Reactions: No Meds Allergies/Adverse Reactions: Allergies Allergy/AdvReac Type Severity Reaction Status Date / Time No Known Allergies Allergy Verified 04/14/15 06:32 - Medications Medications: Current Medications Albuterol/Ipratropium (Duoneb 3 Mg/0.5 Mg (3 Ml) Ud) 3 ml INH RQ6 PRN PRN Reason: Shortness of Breath Allopurinol (Zyloprim) 100 mg PO DAILY [facility] Last Admin: 12/04/17 09:09 Dose: 100 mg Aspirin (Ecotrin) 81 mg PO DAILY [facility] Last Admin: 12/04/17 09:09 Dose: 81 mg Clonazepam (Klonopin) 0.5 mg PO BID PRN PRN Reason: Anxiety Finasteride (Proscar) 5 mg PO DAILY [facility] Last Admin: 12/04/17 09:12 Dose: 5 mg Heparin Sodium (Porcine) (Heparin) 5,000 units SC Q8 [facility] Last Admin: 12/04/17 06:29 Dose: 5,000 units Hydrochlorothiazide (Microzide) 12.5 mg PO DAILY [facility] Last Admin: 12/04/17 09:09 Dose: 12.5 mg Azithromycin 500 mg/ Sodium (Chloride) 250 mls @ 166.667 mls/hr IVPB DAILY [facility] PRN Reason: Protocol Last Admin: 12/04/17 10:40 Dose: 166.667 mls/hr Ceftriaxone Sodium 1 gm/ (Sodium Chloride) 100 mls @ 200 mls/hr IVPB Q12H [facility] PRN Reason: Protocol Last Admin: 12/04/17 08:27 Dose: 200 mls/hr Lisinopril (Zestril) 10 mg PO DAILY [facility] Last Admin: 12/04/17 09:09 Dose: 10 mg Methylprednisolone (Solu-Medrol) 60 mg IVP Q6 [facility] Last Admin: 12/04/17 11:15 Dose: 60 mg Montelukast Sodium (Singulair) 10 mg PO HS [facility] Last Admin: 12/03/17 21:47 Dose: 10 mg Rosuvastatin Calcium (Crestor) 5 mg PO [facility] Tamsulosin HCl (Flomax) 0.4 mg PO DAILY [facility] Last Admin: 12/04/17 09:09 Dose: 0.4 mg Topiramate (Topamax) 50 mg PO BID [facility] Physical Exam - Constitutional Appears: Well, Non-toxic, No Acute Distress - Head Exam Head Exam: ATRAUMATIC, NORMAL INSPECTION, NORMOCEPHALIC - Eye Exam Eye Exam: EOMI, Normal appearance, PERRL Pupil Exam: NORMAL ACCOMODATION - Neck Exam Neck exam: Positive for: Meningismus - Neurological Exam Neurological exam: Alert, CN II-XII Intact, Oriented x3, Reflexes Normal - Expanded Neurological Exam Expanded Neurological exam: Tremor (Essential tremor, no gait abnormaility, no bradykinesia observed, no cogwheel rigidity) Patient oriented to: person, place, time Cranial nerves: EOM's Intact: Normal, Facial Sensation: Normal Cerebellar Function: Finger to Nose: Normal Upper motor neuron: Pronator Drift: Normal, Sensory Extinction: Normal - Psychiatric Exam Psychiatric exam: Normal Affect, Normal Mood Results - Vital Signs Recent Vital Signs: Last Vital Signs Temp 98 F 12/04/17 08:11 Pulse 104 H 12/04/17 08:11 Resp 20 12/04/17 08:11 BP 126/60 12/04/17 08:11 Pulse Ox 96 12/04/17 08:11 - Labs Result Diagrams: 12/04/17 07:52 12/04/17 07:52 Labs: Laboratory Results - last 24 hr 12/03/17 12/03/17 12/03/17 09:52 12:30 13:24 WBC RBC Hgb Hct MCV MCH MCHC RDW Plt Count MPV Neut % (Auto) Lymph % (Auto) [place] % (Auto) Eos % (Auto) Baso % (Auto) Neut # (Auto) Lymph # (Auto) [place] # (Auto) Eos # (Auto) Baso # (Auto) D-Dimer, Quantitative 231 Sodium Potassium Chloride Carbon Dioxide Anion Gap BUN Creatinine Est GFR ( Amer) Est GFR (Non-Af Amer) Random Glucose Calcium Phosphorus Magnesium Total Bilirubin AST ALT Alkaline Phosphatase Total Protein Albumin Globulin Albumin/Globulin Ratio 25-OH Vitamin D Total Free T4 TSH 3rd Generation Influenza Typ A,B (EIA) Negative for flu a/b Ur L.pneumophila Ag Mycoplasma pneumon IgM Negative 12/03/17 12/04/17 12/04/17 13:31 07:52 07:52 WBC 12.8 H RBC 4.08 L Hgb 13.4 Hct 38.5 MCV 94.3 H MCH 32.8 H MCHC 34.8 RDW 13.1 Plt Count 229 MPV 8.0 Neut % (Auto) 83.8 H Lymph % (Auto) 12.3 L [place] % (Auto) 3.7 Eos % (Auto) 0.0 Baso % (Auto) 0.2 Neut # (Auto) 10.7 H Lymph # (Auto) 1.6 [place] # (Auto) 0.5 Eos # (Auto) 0.0 Baso # (Auto) 0.0 D-Dimer, Quantitative Sodium Potassium Chloride Carbon Dioxide Anion Gap BUN Creatinine Est GFR ( Amer) Est GFR (Non-Af Amer) Random Glucose Calcium Phosphorus Magnesium Total Bilirubin AST ALT Alkaline Phosphatase Total Protein Albumin Globulin Albumin/Globulin Ratio 25-OH Vitamin D Total 58.3 Free T4 TSH 3rd Generation Influenza Typ A,B (EIA) Ur L.pneumophila Ag Negative Mycoplasma pneumon IgM 12/04/17 12/04/17 07:52 07:52 WBC RBC Hgb Hct MCV MCH MCHC RDW Plt Count MPV Neut % (Auto) Lymph % (Auto) [place] % (Auto) Eos % (Auto) Baso % (Auto) Neut # (Auto) Lymph # (Auto) [place] # (Auto) Eos # (Auto) Baso # (Auto) D-Dimer, Quantitative Sodium 137 Potassium 4.9 Chloride 100 Carbon Dioxide 22 Anion Gap 20 BUN 40 H Creatinine 1.7 H Est GFR ( Amer) 47 Est GFR (Non-Af Amer) 39 Random Glucose 143 H Calcium 8.7 Phosphorus 5.2 H Magnesium 2.2 Total Bilirubin 0.5 AST 98 H D ALT 54 Alkaline Phosphatase 57 Total Protein 7.0 Albumin 3.9 Globulin 3.2 Albumin/Globulin Ratio 1.2 25-OH Vitamin D Total Free T4 0.95 TSH 3rd Generation 0.43 L Influenza Typ A,B (EIA) Ur L.pneumophila Ag Mycoplasma pneumon IgM Assessment & Plan - Assessment and Plan (Free Text) Assessment: Assessment & Plan discussed with Dr. Aecves: 77 male w/ PMHx of asthma, HTN, Cardiac cath in 2004, BPH admitted to hospital for acute asthma exacerbation. Neurology consulted for patient having hand tremor for the past 3 months. 1) Essential tremor vs Parkinson Disease - less likely parkinson - patient is not bradykinetic, no cogwell rigidity observed, pt has family history of tremor - likely Essential tremor: start topamax 50 BID, monitor hand tremor
--- NOTE | 2017-12-04 12:57 | CP.PCM.PN ---
<Dashawn Sarmiento - Last Filed: 12/04/17 15:20> Subjective - Date & Time of Evaluation Date of Evaluation: 12/04/17 Time of Evaluation: 12:49 - Subjective Subjective: Pt seen and examined at bedside. Pt reports improvement of symptoms. Pt is able to tolerate short distances without overbearing SOB. Pt still complains of coughs and wheezes associated with white phlegm. Pt denies SOB. f/c, n/v, or pains with deep inspiration. Objective - Vital Signs/Intake and Output Vital Signs (last 24 hours): Temp Pulse Resp BP Pulse Ox 98 F 104 H 20 126/60 96 12/04/17 08:11 12/04/17 08:11 12/04/17 08:11 12/04/17 08:11 12/04/17 08:11 Intake and Output: 12/04/17 12/04/17 06:59 18:59 Intake Total 240 Balance 240 - Medications Medications: Current Medications Albuterol/Ipratropium (Duoneb 3 Mg/0.5 Mg (3 Ml) Ud) 3 ml INH RQ6 PRN PRN Reason: Shortness of Breath Allopurinol (Zyloprim) 100 mg PO DAILY [facility] Last Admin: 12/04/17 09:09 Dose: 100 mg Aspirin (Ecotrin) 81 mg PO DAILY [facility] Last Admin: 12/04/17 09:09 Dose: 81 mg Clonazepam (Klonopin) 0.5 mg PO BID PRN PRN Reason: Anxiety Finasteride (Proscar) 5 mg PO DAILY [facility] Last Admin: 12/04/17 09:12 Dose: 5 mg Heparin Sodium (Porcine) (Heparin) 5,000 units SC Q8 [facility] Last Admin: 12/04/17 06:29 Dose: 5,000 units Hydrochlorothiazide (Microzide) 12.5 mg PO DAILY [facility] Last Admin: 12/04/17 09:09 Dose: 12.5 mg Azithromycin 500 mg/ Sodium (Chloride) 250 mls @ 166.667 mls/hr IVPB DAILY [facility] PRN Reason: Protocol Last Admin: 12/04/17 10:40 Dose: 166.667 mls/hr Ceftriaxone Sodium 1 gm/ (Sodium Chloride) 100 mls @ 200 mls/hr IVPB Q12H [facility] PRN Reason: Protocol Last Admin: 12/04/17 08:27 Dose: 200 mls/hr Lisinopril (Zestril) 10 mg PO DAILY [facility] Last Admin: 12/04/17 09:09 Dose: 10 mg Methylprednisolone (Solu-Medrol) 60 mg IVP Q6 [facility] Last Admin: 12/04/17 11:15 Dose: 60 mg Montelukast Sodium (Singulair) 10 mg PO HS [facility] Last Admin: 12/03/17 21:47 Dose: 10 mg Rosuvastatin Calcium (Crestor) 5 mg PO HS [facility] Tamsulosin HCl (Flomax) 0.4 mg PO DAILY [facility] Last Admin: 12/04/17 09:09 Dose: 0.4 mg - Labs Labs: 12/04/17 07:52 12/04/17 07:52 Assessment and Plan - Assessment and Plan (Free Text) Plan: Asthma with possible RLL Pneumonia -WBC 12.8 : neutrophillic *L shift -Solumedrol 60mg IV -duonebs PRN -Spiriva 2 puffs -Singulair -Azithromycin 500mg daily IVP -Rocephin 1g daily IVP -Pulm consulted: Dr. Young - recommending CT chest : Cardiomegaly. Large hiatal hernia with evidence of severe gastroesophageal reflux. Partially imaged indeterminate 3 cm low-density lesion arising from the right upper pole kidney. IV steriods Nebulizer ABG : pCO2 36, pO2 106H, HCO3 23.4, pH 7.4 -ABG Hg and carboxyHg pending -Outpt PFT -flu, strep, mycobac, legionella serologies NEG -blood cultures: No Growth 24hrs Hiatal Hernia -Protonix 80mg Drip -incline bed for sleeping Essential Tremor: -Dr Aceves Neurology consulted: recs appreciated -topimax 50mg PO BID Chronic HTN: -hold metoprolol -Lisinopril 10mg PO daily -HCTZ 12.5mg PO daily Hx of Low Vit D -F/u Vit D levels -hold supplement BPH: -Dutoseride .5mg PO daily -Flomax .4mg PO Daily Hx of Cardiac Cath 2003 -Dr Anderson consulted : recommending Echo f/u results and BP control Anxiety -Klonopin 0.5mg PO PRN Tremor/gait disturbance -neuro consulted Dr Aceves Hx of Gout -allopurinol 100mg PO daily PPX -DVT Risk of 3, age plus possible pna -Hepain 5000u sc q8 -protonix 80mg drip -SCDs -Heart Healthy 2g Na Low carb <Dhruv Boss - Last Filed: 12/04/17 18:37> Objective - Vital Signs/Intake and Output Vital Signs (last 24 hours): Temp Pulse Resp BP Pulse Ox 98.3 F 93 H 20 126/79 97 12/04/17 16:00 12/04/17 16:00 12/04/17 16:00 12/04/17 16:00 12/04/17 16:00 Intake and Output: 12/04/17 12/04/17 06:59 18:59 Intake Total 240 250 Balance 240 250 - Medications Medications: Current Medications Albuterol/Ipratropium (Duoneb 3 Mg/0.5 Mg (3 Ml) Ud) 3 ml INH RQ6 PRN PRN Reason: Shortness of Breath Last Admin: 12/04/17 16:45 Dose: 3 ml Allopurinol (Zyloprim) 100 mg PO DAILY [facility] Last Admin: 12/04/17 09:09 Dose: 100 mg Aspirin (Ecotrin) 81 mg PO DAILY [facility] Last Admin: 12/04/17 09:09 Dose: 81 mg Clonazepam (Klonopin) 0.5 mg PO BID PRN PRN Reason: Anxiety Finasteride (Proscar) 5 mg PO DAILY [facility] Last Admin: 12/04/17 09:12 Dose: 5 mg Heparin Sodium (Porcine) (Heparin) 5,000 units SC Q8 [facility] Last Admin: 12/04/17 13:23 Dose: 5,000 units Hydrochlorothiazide (Microzide) 12.5 mg PO DAILY [facility] Last Admin: 12/04/17 09:09 Dose: 12.5 mg Azithromycin 500 mg/ Sodium (Chloride) 250 mls @ 166.667 mls/hr IVPB DAILY [facility] PRN Reason: Protocol Last Admin: 12/04/17 10:40 Dose: 166.667 mls/hr Ceftriaxone Sodium 1 gm/ (Sodium Chloride) 100 mls @ 200 mls/hr IVPB Q12H [facility] PRN Reason: Protocol Last Admin: 12/04/17 08:27 Dose: 200 mls/hr Lisinopril (Zestril) 10 mg PO DAILY [facility] Last Admin: 12/04/17 09:09 Dose: 10 mg Methylprednisolone (Solu-Medrol) 60 mg IVP Q6 [facility] Last Admin: 12/04/17 17:41 Dose: 60 mg Montelukast Sodium (Singulair) 10 mg PO HS [facility] Last Admin: 12/03/17 21:47 Dose: 10 mg Pantoprazole Sodium (Protonix Ec Tab) 40 mg PO DAILY [facility] Rosuvastatin Calcium (Crestor) 5 mg PO HS [facility] Tamsulosin HCl (Flomax) 0.4 mg PO DAILY [facility] Last Admin: 12/04/17 09:09 Dose: 0.4 mg Topiramate (Topamax) 50 mg PO BID [facility] Last Admin: 12/04/17 17:42 Dose: 50 mg - Labs Labs: 12/04/17 07:52 12/04/17 07:52 Attending/Attestation - Attestation I have personally seen and examined this patient.: Yes I have fully participated in the care of the patient.: Yes I have reviewed all pertinent clinical information, including history, physical exam and plan: Yes Notes (Text): 12/04/17 18:25 Patient was seen and examined at 7:30 AM 12/04/17 Care of this patient was discussed with resident. Also on ROS: Has not moved his bowels since Sunday Breathing is much better and SOB has decreased NO cough NO chest pain Chest tightness is also less NO longer hearing his own wheezing NO other complaints UPON FULL ROS Has been having bilateral arm/hands/leg/feet tremors for the past 3 months Also has had bilateral inguinal hernia now for the past 1 year that he has not had been able to see a surgeon for through his PMD Dr. Silva due to unspecified insurance issues. Also on Exam: NO longer with audible wheezing Speaking in full sentences with no signs of respiratory distress Diffuse expiratory rhonch and wheezing Bilateral inguinal/scrotal hernia with left > right: nontender, nonerythematous , nonwarm F/U Neurology Dr. Aceves for further recommendations concerning the tremor Consider getting Surgery recommendations for the inguinal hernia F/U Echocardiogram report F/U CT Chest F/U Vitamin D level Continue Solumedrol at 60 mg IV Q6H for now. Please note that the patient is not on Protonix Drip but is on Protonix 40 mg PO 1x/day Dhruv Boss D.O.
--- NOTE | 2017-12-04 14:34 | CP.PCM.PN ---
Subjective - Date & Time of Evaluation Date of Evaluation: 12/04/17 Time of Evaluation: 12:00 - Subjective Subjective: patient seen and examined Breathing and cough much improved Less wheezing Afebrile Continue nebulizer treatment Continue IV steroids Objective - Vital Signs/Intake and Output Vital Signs (last 24 hours): Temp Pulse Resp BP Pulse Ox 98 F 104 H 20 126/60 96 12/04/17 08:11 12/04/17 08:11 12/04/17 08:11 12/04/17 08:11 12/04/17 08:11 Intake and Output: 12/04/17 12/04/17 06:59 18:59 Intake Total 240 250 Balance 240 250 - Medications Medications: Current Medications Albuterol/Ipratropium (Duoneb 3 Mg/0.5 Mg (3 Ml) Ud) 3 ml INH RQ6 PRN PRN Reason: Shortness of Breath Allopurinol (Zyloprim) 100 mg PO DAILY [facility] Last Admin: 12/04/17 09:09 Dose: 100 mg Aspirin (Ecotrin) 81 mg PO DAILY [facility] Last Admin: 12/04/17 09:09 Dose: 81 mg Clonazepam (Klonopin) 0.5 mg PO BID PRN PRN Reason: Anxiety Finasteride (Proscar) 5 mg PO DAILY [facility] Last Admin: 12/04/17 09:12 Dose: 5 mg Heparin Sodium (Porcine) (Heparin) 5,000 units SC Q8 [facility] Last Admin: 12/04/17 13:23 Dose: 5,000 units Hydrochlorothiazide (Microzide) 12.5 mg PO DAILY [facility] Last Admin: 12/04/17 09:09 Dose: 12.5 mg Azithromycin 500 mg/ Sodium (Chloride) 250 mls @ 166.667 mls/hr IVPB DAILY [facility] PRN Reason: Protocol Last Admin: 12/04/17 10:40 Dose: 166.667 mls/hr Ceftriaxone Sodium 1 gm/ (Sodium Chloride) 100 mls @ 200 mls/hr IVPB Q12H [facility] PRN Reason: Protocol Last Admin: 12/04/17 08:27 Dose: 200 mls/hr Lisinopril (Zestril) 10 mg PO DAILY [facility] Last Admin: 12/04/17 09:09 Dose: 10 mg Methylprednisolone (Solu-Medrol) 60 mg IVP Q6 [facility] Last Admin: 12/04/17 11:15 Dose: 60 mg Montelukast Sodium (Singulair) 10 mg PO HS [facility] Last Admin: 12/03/17 21:47 Dose: 10 mg Rosuvastatin Calcium (Crestor) 5 mg PO HS [facility] Tamsulosin HCl (Flomax) 0.4 mg PO DAILY [facility] Last Admin: 12/04/17 09:09 Dose: 0.4 mg Topiramate (Topamax) 50 mg PO BID [facility] - Labs Labs: 12/04/17 07:52 12/04/17 07:52 Assessment and Plan (1) Asthma exacerbation Status: Acute
[2017-12-04] MEDS ORDERED: Pantoprazole 80 MG in Sodium Chloride 0.9% 100 ML IVPB SCH ×2 (15:30→18:00)
[2017-12-04] MEDS: Albuterol-Ipratrop 3 mg / 0.5 (3 ml) UD INH PRN ×2 (16:45→19:14)
--- NOTE | 2017-12-04 16:50 | CARD ---
APPROVED REPORT Date of service: 12/04/2017 EXAM: Two-dimensional and M-mode echocardiogram with Doppler and color Doppler. Other Information Quality : TDSRhythm : INDICATION Dyspnea CAD Chest Pain RISK FACTORS Hypertension 2D DIMENSIONS IVSd1.0 (0.7-1.1cm)LVDd3.5 (3.9-5.9cm) PWd1.3 (0.7-1.1cm)LVDs2.3 (2.5-4.0cm) FS (%) 34.4 %LVEF (%)64.6 (>50%) M-Mode DIMENSIONS Left Atrium (MM)3.33 (2.5-4.0cm)IVSd1.04 (0.7-1.1cm) Aortic Root4.02 (2.2-3.7cm)LVDd4.54 (4.0-5.6cm) Aortic Cusp Exc.2.05 (1.5-2.0cm)PWd0.83 (0.7-1.1cm) FS (%) 48 %LVDs2.34 (2.0-3.8cm) LVEF (%)80 (>50%) Aortic Valve AI P 1/2 [id number] Mitral Valve MV E Siwuespu12.1cm/sMV A Txskukpr78.8cm/sE/A ratio1.2 TDI E/Lateral E'0.0E/Medial E'0.0 Tricuspid Valve TR Peak [id number]/sTR Peak [id number] LEFT VENTRICLE The left ventricle is normal size. There is normal left ventricular wall thickness. The left ventricular function is normal. The left ventricular ejection fraction is within the normal range. No regional wall motion abnormalities noted. The left ventricular diastolic function is normal. No left ventricle thrombus noted on this study. There is no ventricular septal defect visualized. There is no left ventricular aneurysm. There is no mass noted in the left ventricle. RIGHT VENTRICLE The right ventricle is normal size. There is normal right ventricular wall thickness. The right ventricular systolic function is normal. ATRIA The left atrium size is normal. The right atrium size is normal. The interatrial septum is intact with no evidence for an atrial septal defect. AORTIC VALVE The aortic valve is normal in structure and function. Mild aortic regurgitation is present. There is no aortic valvular stenosis. There is no aortic valvular vegetation. MITRAL VALVE The mitral valve is normal in structure and function. There is no evidence of mitral valve prolapse. There is no mitral valve stenosis. There is no mitral valve regurgitation noted. TRICUSPID VALVE The tricuspid valve is normal in structure and function. There is mild tricuspid valve regurgitation noted. There is no tricuspid valve prolapse or vegetation. There is no tricuspid valve stenosis. PULMONIC VALVE The pulmonary valve is normal in structure and function. There is no pulmonic valvular regurgitation. There is no pulmonic valvular stenosis. GREAT VESSELS The aortic root is normal in size. The ascending aorta is normal in size. The pulmonary artery is normal. The IVC is normal in size and collapses >50% with inspiration. PERICARDIAL EFFUSION The pericardium appears normal. There is no pleural effusion. <Conclusion> Mild aortic regurgitation is present. Normal LV systolic function and wall motion.
--- NOTE | 2017-12-04 17:41 | CARD ---
APPROVED REPORT Date of service: 12/03/2017 EKG Measurement Heart [id number] <Conclusion> Normal sinus rhythm Junctional ST depression, probably normal Borderline ECG
[2017-12-04] MEDS: Pantoprazole 40 mg EC Tab PO SCH (19:13)
[2017-12-04] MEDS: Lactobacillus Acidophilus 500 MU Cap PO SCH (19:13)
[2017-12-05] MEDS: MethylPREDNISolone 40 mg Vial IVP SCH ×5 (00:18→23:50)
[2017-12-05 07:09] LABS: BASO % 0.1 % (0.0-2.0); LYMPH # 1.1 K/uL (1.0-4.3); LYMPH % 7.9 % (20.0-40.0); MEAN CELL VOLUME 93.9 fL (80.0-94.0); MEAN CORPUSCULAR HGB CONC 34.1 g/dL (33.0-37.0); MEAN PLATELET VOLUME 8.2 fL (7.2-11.7); MONO # 0.5 K/uL (0.0-0.8); MONO % 3.6 % (0.0-10.0); NEUT # 12.3 K/uL (1.8-7.0); NEUT % 88.4 % (50.0-75.0); PLATELET COUNT 224 K/uL (130-400); RBC 4.07 Mil/uL (4.40-5.90); RED CELL DISTRIBUTION WIDTH 13.1 % (11.5-14.5)
[2017-12-05 07:51] LABS: ALB/GLOB RATIO 1.2 (1.0-2.1); ALBUMIN 3.6 g/dL (3.5-5.0); CALCIUM 8.6 mg/dl (8.6-10.4)
[2017-12-05 08:25] LABS: BANDS 1 % (0-2); LYMPHOCYTE 6 % (20-40); MONOCYTE 6 % (0-10); NEUTROPHIL 87 % (50-75); PLATELET ESTIMATE NORMAL (NORMAL); TOTAL CELLS COUNTED 100
[2017-12-05] MEDS: Pantoprazole 40 mg EC Tab PO SCH (09:21)
[2017-12-05] MEDS: Lactobacillus Acidophilus 500 MU Cap PO SCH ×2 (09:22→17:38)
[2017-12-05] MEDS: Albuterol-Ipratrop 3 mg / 0.5 (3 ml) UD INH PRN ×2 (09:45→13:34)
--- NOTE | 2017-12-05 11:03 | CP.PCM.PN ---
<Dashawn Sarmiento - Last Filed: 12/05/17 14:35> Subjective - Date & Time of Evaluation Date of Evaluation: 12/05/17 Time of Evaluation: 10:53 - Subjective Subjective: Pt seen and examined at bedside. Pt complains of abdominal superficial pain near heparin dosing sites. Pt reports poor sleep last night due to environmental noise and restlessness. Pt does not believe tremors have improved since starting topamax yesterday. Pt says his sob is improved greatly and is able to ambulate without symptom exacerbation. Pt denies cp, f/c, n/v Objective - Vital Signs/Intake and Output Vital Signs (last 24 hours): Temp Pulse Resp BP Pulse Ox 97.7 F 96 H 20 124/67 95 12/05/17 07:17 12/05/17 07:17 12/05/17 07:17 12/05/17 07:17 12/05/17 07:17 Intake and Output: 12/05/17 12/05/17 06:59 18:59 Intake Total 480 Balance 480 - Medications Medications: Current Medications Albuterol/Ipratropium (Duoneb 3 Mg/0.5 Mg (3 Ml) Ud) 3 ml INH RQ6 PRN PRN Reason: Shortness of Breath Last Admin: 12/05/17 09:45 Dose: 3 ml Allopurinol (Zyloprim) 100 mg PO DAILY [facility] Last Admin: 12/05/17 09:21 Dose: 100 mg Aspirin (Ecotrin) 81 mg PO DAILY [facility] Last Admin: 12/05/17 09:21 Dose: 81 mg Clonazepam (Klonopin) 0.5 mg PO BID PRN PRN Reason: Anxiety Finasteride (Proscar) 5 mg PO DAILY [facility] Last Admin: 12/05/17 09:23 Dose: 5 mg Heparin Sodium (Porcine) (Heparin) 5,000 units SC Q8 [facility] Last Admin: 12/05/17 05:48 Dose: Not Given Hydrochlorothiazide (Microzide) 12.5 mg PO DAILY [facility] Last Admin: 12/05/17 09:21 Dose: 12.5 mg Azithromycin 500 mg/ Sodium (Chloride) 250 mls @ 166.667 mls/hr IVPB DAILY [facility] PRN Reason: Protocol Last Admin: 12/04/17 10:40 Dose: 166.667 mls/hr Ceftriaxone Sodium 1 gm/ (Sodium Chloride) 100 mls @ 200 mls/hr IVPB Q12H [facility] PRN Reason: Protocol Last Admin: 12/05/17 09:22 Dose: 200 mls/hr Lactobacillus Acidophilus (Bacid Acidophilus) 1 cap PO BID [facility] Last Admin: 12/05/17 09:22 Dose: 1 cap Lisinopril (Zestril) 10 mg PO DAILY [facility] Last Admin: 12/05/17 09:21 Dose: 10 mg Methylprednisolone (Solu-Medrol) 60 mg IVP Q6 [facility] Last Admin: 12/05/17 05:47 Dose: 60 mg Montelukast Sodium (Singulair) 10 mg PO HS [facility] Last Admin: 12/04/17 21:40 Dose: 10 mg Pantoprazole Sodium (Protonix Ec Tab) 40 mg PO DAILY [facility] Last Admin: 12/05/17 09:21 Dose: 40 mg Rosuvastatin Calcium (Crestor) 5 mg PO HS [facility] Last Admin: 12/04/17 21:40 Dose: 5 mg Tamsulosin HCl (Flomax) 0.4 mg PO DAILY [facility] Last Admin: 12/05/17 09:21 Dose: 0.4 mg Topiramate (Topamax) 50 mg PO BID [facility] Last Admin: 12/05/17 09:23 Dose: 50 mg - Labs Labs: 12/05/17 06:55 12/05/17 06:55 - Additional Findings Additional findings: - Constitutional Appears: Non-toxic, No Acute Distress, Confused - Head Exam Head Exam: ATRAUMATIC, NORMAL INSPECTION - Eye Exam Eye Exam: EOMI, Normal appearance - ENT Exam ENT Exam: Mucous Membranes Moist - Neck Exam Neck exam: Negative for: Lymphadenopathy, Thyromegaly - Respiratory Exam Respiratory Exam: Wheezes (Bilateral, inspiratory). absent: Chest Wall Tenderness - Cardiovascular Exam Cardiovascular Exam: RRR, +S1, +S2 - GI/Abdominal Exam GI & Abdominal Exam: Bruising noted on abdomen from heparin injections. Normal Bowel Sounds, Soft. absent: Hyperactive Bowel Sounds, Tenderness - Extremities Exam Extremities exam: Positive for: normal inspection, pedal pulses present. Negative for: calf tenderness, pedal edema, tenderness - Back Exam Back exam: NORMAL INSPECTION - Neurological Exam Neurological exam: Alert, CN II-XII Intact, Oriented x3 Additional comments: shuffling gait resting tremor intention tremor neg goddard's Assessment and Plan - Assessment and Plan (Free Text) Assessment: Asthma with possible RLL Pneumonia -WBC 14 : neutrophillic *L shift -likely steroid induced -Solumedrol 60mg IV -duonebs PRN -Spiriva 2 puffs -Singulair -Azithromycin 500mg daily IVP -Rocephin 1g daily IVP -Pulm consulted: Dr. Young - recommending CT chest : Cardiomegaly. Large hiatal hernia with evidence of severe gastroesophageal reflux. Partially imaged indeterminate 3 cm low-density lesion arising from the right upper pole kidney. IV steriods Nebulizer ABG : pCO2 36, pO2 106H, HCO3 23.4, pH 7.4 -ABG Hg and carboxyHg pending -Outpt PFT -flu, strep, mycobac, legionella serologies NEG -blood cultures: No Growth 24hrs Hiatal Hernia -Protonix 80mg Drip -incline bed for sleeping Bilateral Inguinal Hernias L>R: -Surgery consulted: Dr. Quispe -fernando appreciated Essential Tremor: -Dr Aceves Neurology consulted: fernando appreciated -topimax 50mg PO BID Chronic HTN: -hold metoprolol -Lisinopril 10mg PO daily -HCTZ 12.5mg PO daily Hx of Low Vit D -F/u Vit D levels -hold supplement BPH: -Dutoseride .5mg PO daily -Flomax .4mg PO Daily Hx of Cardiac Cath 2003 -Dr nAderson consulted : recommending Echo f/u results and BP control Anxiety -Klonopin 0.5mg PO PRN Tremor/gait disturbance -neuro consulted Dr Aceves Hx of Gout -allopurinol 100mg PO daily PPX -DVT Risk of 3, age plus possible pna -Hepain 5000u sc q8 -protonix 80mg drip -SCDs -Heart Healthy 2g Na Low carb dispo: pt improving, will d/c home when symptoms resolved <Dhruv Boss - Last Filed: 12/07/17 20:25> Objective - Vital Signs/Intake and Output Vital Signs (last 24 hours): Temp Pulse Resp BP Pulse Ox 98.1 F 98 H 20 131/65 95 12/07/17 15:52 12/07/17 15:52 12/07/17 15:52 12/07/17 15:52 12/07/17 15:52 Intake and Output: 12/07/17 12/08/17 18:59 06:59 Intake Total 1000 Balance 1000 - Medications Medications: Current Medications Albuterol/Ipratropium (Duoneb 3 Mg/0.5 Mg (3 Ml) Ud) 3 ml INH RQ6 PRN PRN Reason: Shortness of Breath Last Admin: 12/06/17 19:24 Dose: 3 ml Allopurinol (Zyloprim) 100 mg PO DAILY [facility] Last Admin: 12/07/17 09:07 Dose: 100 mg Aspirin (Ecotrin) 81 mg PO DAILY [facility] Last Admin: 12/07/17 09:07 Dose: 81 mg Carbidopa/Levodopa (Sinemet) 1 tab PO 0700,1200,1500 [facility] Last Admin: 12/07/17 14:06 Dose: 1 tab Clonazepam (Klonopin) 0.5 mg PO BID PRN PRN Reason: Anxiety Last Admin: 12/06/17 21:40 Dose: 0.5 mg Escitalopram Oxalate (Lexapro) 5 mg PO DAILY [facility] Last Admin: 12/07/17 10:03 Dose: 5 mg Finasteride (Proscar) 5 mg PO DAILY [facility] Last Admin: 12/07/17 09:07 Dose: 5 mg Heparin Sodium (Porcine) (Heparin) 5,000 units SC Q8 [facility] Last Admin: 12/07/17 13:05 Dose: Not Given Hydrochlorothiazide (Microzide) 12.5 mg PO DAILY [facility] Last Admin: 12/07/17 09:07 Dose: 12.5 mg Sodium Chloride (Sodium Chloride 0.9%) 1,000 mls @ 75 mls/hr IV .[id number] [facility] Last Admin: 12/07/17 08:45 Dose: 75 mls/hr Lactobacillus Acidophilus (Bacid Acidophilus) 1 cap PO BID [facility] Last Admin: 12/07/17 17:03 Dose: 1 cap Lisinopril (Zestril) 10 mg PO DAILY [facility] Last Admin: 12/07/17 09:07 Dose: 10 mg Methylprednisolone (Solu-Medrol) 40 mg IVP Q8 [facility] Last Admin: 12/07/17 13:10 Dose: 40 mg Montelukast Sodium (Singulair) 10 mg PO HS [facility] Last Admin: 12/06/17 21:37 Dose: 10 mg Pantoprazole Sodium (Protonix Ec Tab) 40 mg PO DAILY [facility] Last Admin: 12/07/17 09:07 Dose: 40 mg Rosuvastatin Calcium (Crestor) 5 mg PO HS [facility] Last Admin: 12/06/17 21:40 Dose: 5 mg Fluticasone/Salmeterol (Advair Diskus 250/50) 1 puff INH RQ12 [facility] Last Admin: 12/06/17 19:20 Dose: 1 puff Tamsulosin HCl (Flomax) 0.4 mg PO DAILY [facility] Last Admin: 12/07/17 09:07 Dose: 0.4 mg Topiramate (Topamax) 50 mg PO BID [facility] Last Admin: 12/07/17 17:03 Dose: 50 mg - Labs Labs: 12/07/17 08:03 12/07/17 08:03 Attending/Attestation - Attestation I have personally seen and examined this patient.: Yes I have fully participated in the care of the patient.: Yes I have reviewed all pertinent clinical information, including history, physical exam and plan: Yes Notes (Text): 12/07/17 20:25 This is a late entry Care of this patient was gone over in detail with the resident Dhruv Boss D.O.
[2017-12-05] MEDS: Azithromycin 500 MG in Sodium Chloride 0.9% 250 ML IVPB SCH (11:18)
--- NOTE | 2017-12-05 16:21 | CP.PCM.PN ---
Subjective - Date & Time of Evaluation Date of Evaluation: 12/05/17 Time of Evaluation: 14:00 - Subjective Subjective: patient seen and examined Very anxious Breathing much improved Afebrile No chest pain Objective - Vital Signs/Intake and Output Vital Signs (last 24 hours): Temp Pulse Resp BP Pulse Ox 97.7 F 96 H 20 124/67 95 12/05/17 07:17 12/05/17 07:17 12/05/17 07:17 12/05/17 07:17 12/05/17 07:17 Intake and Output: 12/05/17 12/05/17 06:59 18:59 Intake Total 480 600 Balance 480 600 - Medications Medications: Current Medications Albuterol/Ipratropium (Duoneb 3 Mg/0.5 Mg (3 Ml) Ud) 3 ml INH RQ6 PRN PRN Reason: Shortness of Breath Last Admin: 12/05/17 13:34 Dose: 3 ml Allopurinol (Zyloprim) 100 mg PO DAILY [facility] Last Admin: 12/05/17 09:21 Dose: 100 mg Aspirin (Ecotrin) 81 mg PO DAILY [facility] Last Admin: 12/05/17 09:21 Dose: 81 mg Clonazepam (Klonopin) 0.5 mg PO BID PRN PRN Reason: Anxiety Finasteride (Proscar) 5 mg PO DAILY [facility] Last Admin: 12/05/17 09:23 Dose: 5 mg Heparin Sodium (Porcine) (Heparin) 5,000 units SC Q8 [facility] Last Admin: 12/05/17 14:24 Dose: Not Given Hydrochlorothiazide (Microzide) 12.5 mg PO DAILY [facility] Last Admin: 12/05/17 09:21 Dose: 12.5 mg Azithromycin 500 mg/ Sodium (Chloride) 250 mls @ 166.667 mls/hr IVPB DAILY [facility] PRN Reason: Protocol Last Admin: 12/05/17 11:18 Dose: 166.667 mls/hr Ceftriaxone Sodium 1 gm/ (Sodium Chloride) 100 mls @ 200 mls/hr IVPB Q12H [facility] PRN Reason: Protocol Last Admin: 12/05/17 09:22 Dose: 200 mls/hr Lactobacillus Acidophilus (Bacid Acidophilus) 1 cap PO BID [facility] Last Admin: 12/05/17 09:22 Dose: 1 cap Lisinopril (Zestril) 10 mg PO DAILY [facility] Last Admin: 12/05/17 09:21 Dose: 10 mg Methylprednisolone (Solu-Medrol) 60 mg IVP Q6 [facility] Last Admin: 12/05/17 12:21 Dose: 60 mg Montelukast Sodium (Singulair) 10 mg PO HS [facility] Last Admin: 12/04/17 21:40 Dose: 10 mg Pantoprazole Sodium (Protonix Ec Tab) 40 mg PO DAILY [facility] Last Admin: 12/05/17 09:21 Dose: 40 mg Rosuvastatin Calcium (Crestor) 5 mg PO HS [facility] Last Admin: 12/04/17 21:40 Dose: 5 mg Tamsulosin HCl (Flomax) 0.4 mg PO DAILY [facility] Last Admin: 12/05/17 09:21 Dose: 0.4 mg Topiramate (Topamax) 50 mg PO BID [facility] Last Admin: 12/05/17 09:23 Dose: 50 mg - Labs Labs: 12/05/17 06:55 12/05/17 06:55 - Head Exam Head Exam: ATRAUMATIC, NORMOCEPHALIC - Eye Exam Eye Exam: Normal appearance - ENT Exam ENT Exam: Mucous Membranes Moist - Respiratory Exam Respiratory Exam: Clear to Ausculation Bilateral - Cardiovascular Exam Cardiovascular Exam: REGULAR RHYTHM - GI/Abdominal Exam GI & Abdominal Exam: Soft, Normal Bowel Sounds Assessment and Plan (1) Asthma exacerbation Assessment & Plan: start tapering steroids Start anxiolytic Nebulizer treatment Status: Acute
--- NOTE | 2017-12-05 16:44 | CP.PCM.CON ---
History of Present Illness - History of Present Illness History of Present Illness: General Surgery Consult note for Dr. Quispe Mr. Jean-Baptiste is a 77yoM PMH of asthma, anxiety, HTN, Cardiac cath in 2004, BPH was admitted for asthma exacerbation and pneumonia was seen today at bedside for bilateral inguinal hernias. He has had them for 3 years now, and is asymptomatic. However, they have been growing and he would like to have them removed. He is still having bowel movements, can reduce them on his own, and passing flatus. Denies pain anywhere, claudication, difficulty urinating, straining to defecate, n/v, f/c, skin color/temperature/texture changes. PMH: asthma, anxiety, HTN, Cardiac cath in 2004, BPH, hiatal hernia PSxH: none Med: per MAR All: NKDA SocHx: denies FamHx: mother - CAD, brother - poss gastric CA Review of Systems - Review of Systems All systems: reviewed and no additional remarkable complaints except Review of Systems: HPI Past Patient History - Infectious Disease Hx of Infectious Diseases: None - Past Social History Smoking Status: Never Smoked Alcohol: None Drugs: Denies - CARDIAC Hx Hypertension: Yes Other/Comment: cardiac cath with Dr Anderson in 2004 - PULMONARY Hx Asthma: Yes - MUSCULOSKELETAL/RHEUMATOLOGICAL Hx Falls: No - GENITOURINARY/GYNECOLOGICAL Hx Genitourinary Disorders: Yes Hx Prostate Problems: Yes - PSYCHIATRIC Hx Substance Use: No - SURGICAL HISTORY Hx Surgeries: Yes Hx Cardiac Catheterization: Yes (2003) - ANESTHESIA Hx Anesthesia: Yes Hx Anesthesia Reactions: No Meds Allergies/Adverse Reactions: Allergies Allergy/AdvReac Type Severity Reaction Status Date / Time No Known Allergies Allergy Verified 04/14/15 06:32 - Medications Medications: Current Medications Albuterol/Ipratropium (Duoneb 3 Mg/0.5 Mg (3 Ml) Ud) 3 ml INH RQ6 PRN PRN Reason: Shortness of Breath Last Admin: 12/05/17 13:34 Dose: 3 ml Allopurinol (Zyloprim) 100 mg PO DAILY [facility] Last Admin: 12/05/17 09:21 Dose: 100 mg Aspirin (Ecotrin) 81 mg PO DAILY [facility] Last Admin: 12/05/17 09:21 Dose: 81 mg Clonazepam (Klonopin) 0.5 mg PO BID PRN PRN Reason: Anxiety Finasteride (Proscar) 5 mg PO DAILY [facility] Last Admin: 12/05/17 09:23 Dose: 5 mg Heparin Sodium (Porcine) (Heparin) 5,000 units SC Q8 [facility] Last Admin: 12/05/17 14:24 Dose: Not Given Hydrochlorothiazide (Microzide) 12.5 mg PO DAILY [facility] Last Admin: 12/05/17 09:21 Dose: 12.5 mg Azithromycin 500 mg/ Sodium (Chloride) 250 mls @ 166.667 mls/hr IVPB DAILY [facility] PRN Reason: Protocol Last Admin: 12/05/17 11:18 Dose: 166.667 mls/hr Ceftriaxone Sodium 1 gm/ (Sodium Chloride) 100 mls @ 200 mls/hr IVPB Q12H [facility] PRN Reason: Protocol Last Admin: 12/05/17 09:22 Dose: 200 mls/hr Lactobacillus Acidophilus (Bacid Acidophilus) 1 cap PO BID [facility] Last Admin: 12/05/17 09:22 Dose: 1 cap Lisinopril (Zestril) 10 mg PO DAILY [facility] Last Admin: 12/05/17 09:21 Dose: 10 mg Methylprednisolone (Solu-Medrol) 60 mg IVP Q6 [facility] Last Admin: 12/05/17 12:21 Dose: 60 mg Montelukast Sodium (Singulair) 10 mg PO HS [facility] Last Admin: 12/04/17 21:40 Dose: 10 mg Pantoprazole Sodium (Protonix Ec Tab) 40 mg PO DAILY [facility] Last Admin: 12/05/17 09:21 Dose: 40 mg Rosuvastatin Calcium (Crestor) 5 mg PO HS [facility] Last Admin: 12/04/17 21:40 Dose: 5 mg Tamsulosin HCl (Flomax) 0.4 mg PO DAILY [facility] Last Admin: 12/05/17 09:21 Dose: 0.4 mg Topiramate (Topamax) 50 mg PO BID [facility] Last Admin: 12/05/17 09:23 Dose: 50 mg Physical Exam - Constitutional Appears: Non-toxic, No Acute Distress - Head Exam Head Exam: ATRAUMATIC, NORMOCEPHALIC - Eye Exam Eye Exam: EOMI, Normal appearance - ENT Exam ENT Exam: Mucous Membranes Moist, Normal Exam - Respiratory Exam Respiratory Exam: Wheezes, NORMAL BREATHING PATTERN. absent: Respiratory Distress, Stridor - Cardiovascular Exam Cardiovascular Exam: +S1, +S2. absent: Systolic Murmur - GI/Abdominal Exam GI & Abdominal Exam: Normal Bowel Sounds, Soft. absent: Tenderness - Exam Additional comments: bilateral inguinal hernia L>R, 1.5, fully reducible - Neurological Exam Neurological exam: Alert, Oriented x3 Additional comments: shuffling gait, resting tremor, intention tremor - Psychiatric Exam Psychiatric exam: Normal Affect, Normal Mood - Skin Skin Exam: Dry, Intact, Normal Color, Warm Results - Vital Signs Recent Vital Signs: Last Vital Signs Temp 97.7 F 12/05/17 07:17 Pulse 96 H 12/05/17 07:17 Resp 20 12/05/17 07:17 BP 124/67 12/05/17 07:17 Pulse Ox 95 12/05/17 07:17 - Labs Result Diagrams: 12/05/17 06:55 12/05/17 06:55 Labs: Laboratory Results - last 24 hr 12/05/17 12/05/17 06:55 06:55 WBC 14.0 H RBC 4.07 L Hgb 13.0 Hct 38.2 MCV 93.9 MCH 32.0 H MCHC 34.1 RDW 13.1 Plt Count 224 MPV 8.2 Neut % (Auto) 88.4 H Lymph % (Auto) 7.9 L [place] % (Auto) 3.6 Eos % (Auto) 0.0 Baso % (Auto) 0.1 Neut # (Auto) 12.3 H Lymph # (Auto) 1.1 [place] # (Auto) 0.5 Eos # (Auto) 0.0 Baso # (Auto) 0.0 Neutrophils % (Manual) 87 H Band Neutrophils % 1 Lymphocytes % (Manual) 6 L Monocytes % (Manual) 6 Platelet Estimate Normal Sodium 138 Potassium 4.0 Chloride 103 Carbon Dioxide 22 Anion Gap 17 BUN 44 H Creatinine 1.4 Est GFR ( Amer) 59 Est GFR (Non-Af Amer) 49 Random Glucose 137 H Calcium 8.6 Phosphorus 4.6 H Magnesium 2.2 Total Bilirubin 0.4 AST 141 H D ALT 77 H D Alkaline Phosphatase 53 Total Protein 6.5 Albumin 3.6 Globulin 2.9 Albumin/Globulin Ratio 1.2 Assessment & Plan - Assessment and Plan (Free Text) Assessment: 77yoM with asymptomatic reducible bilateral inguinal hernias Plan: - admitted to hospital for asthma exacerbation and pneumonia - asymptomatic, no evidence of ischemia or incarceration - medical management per primary - would need medical optimization prior to surgery - no interventional surgery at this time - can visit office as outpatient to schedule electively - d/w Dr. Jose Enrique Frerer PGY1 - Date & Time Date: 12/05/17 Time: 12:30
[2017-12-06] MEDS: MethylPREDNISolone 40 mg Vial IVP SCH ×3 (05:08→21:41)
[2017-12-06 08:20] LABS: BASO # 0.1 K/uL (0.0-0.2); BASO % 0.6 % (0.0-2.0); HEMOGLOBIN 14.1 g/dL (12.0-18.0); LYMPH # 0.6 K/uL (1.0-4.3); LYMPH % 5.3 % (20.0-40.0); MEAN CELL VOLUME 94.9 fL (80.0-94.0); MEAN CORPUSCULAR HEMOGLOBIN 32.3 pg (27.0-31.0); MEAN PLATELET VOLUME 8.5 fL (7.2-11.7); MONO # 0.3 K/uL (0.0-0.8); MONO % 2.7 % (0.0-10.0); NEUT # 10.5 K/uL (1.8-7.0); NEUT % 91.4 % (50.0-75.0); PLATELET COUNT 229 K/uL (130-400); RBC 4.38 Mil/uL (4.40-5.90); RED CELL DISTRIBUTION WIDTH 13.2 % (11.5-14.5); WHITE BLOOD COUNT 11.4 K/uL (4.8-10.8)
[2017-12-06 08:33] LABS: ALB/GLOB RATIO 1.4 (1.0-2.1); ALT/SGPT 91 U/L (21-72); AST/SGOT 89 U/L (17-59); BLOOD UREA NITROGEN 41 mg/dL (9-20); CALCIUM 8.2 mg/dl (8.6-10.4); GFR NON-AFRICAN AMERICAN 53
[2017-12-06 09:23] LABS: LYMPHOCYTE 6 % (20-40); MONOCYTE 2 % (0-10); NEUTROPHIL 92 % (50-75); PLATELET ESTIMATE NORMAL (NORMAL); TOTAL CELLS COUNTED 100
[2017-12-06] MEDS: Pantoprazole 40 mg EC Tab PO SCH (09:28)
[2017-12-06] MEDS: Lactobacillus Acidophilus 500 MU Cap PO SCH ×2 (09:28→17:27)
[2017-12-06] MEDS: Azithromycin 500 MG in Sodium Chloride 0.9% 250 ML IVPB SCH (09:29)
--- NOTE | 2017-12-06 15:04 | CP.PCM.PN ---
<Dashawn Sarmiento - Last Filed: 12/06/17 16:56> Subjective - Date & Time of Evaluation Date of Evaluation: 12/06/17 Time of Evaluation: 15:01 - Subjective Subjective: Medicine note for Hospitalist Service Pt seen and examined at bedside. Pt complains today of 3 bouts of green watery diarhhea. Pt also reports specifcally improving with his "mask" as opposed to other therapies. Pt denies chest pains, worsening SOB, pain with inspiration, n/ v, f/c. Objective - Vital Signs/Intake and Output Vital Signs (last 24 hours): Temp Pulse Resp BP Pulse Ox 98.7 F 112 H 20 122/70 96 12/06/17 08:20 12/06/17 08:20 12/06/17 08:20 12/06/17 08:20 12/06/17 08:20 Intake and Output: 12/06/17 12/06/17 06:59 18:59 Intake Total 300 240 Balance 300 240 - Medications Medications: Current Medications Albuterol/Ipratropium (Duoneb 3 Mg/0.5 Mg (3 Ml) Ud) 3 ml INH RQ6 PRN PRN Reason: Shortness of Breath Last Admin: 12/05/17 13:34 Dose: 3 ml Allopurinol (Zyloprim) 100 mg PO DAILY [facility] Last Admin: 12/06/17 09:28 Dose: 100 mg Aspirin (Ecotrin) 81 mg PO DAILY [facility] Last Admin: 12/06/17 09:28 Dose: 81 mg Clonazepam (Klonopin) 0.5 mg PO BID PRN PRN Reason: Anxiety Last Admin: 12/05/17 20:40 Dose: 0.5 mg Finasteride (Proscar) 5 mg PO DAILY [facility] Last Admin: 12/06/17 09:28 Dose: 5 mg Heparin Sodium (Porcine) (Heparin) 5,000 units SC Q8 [facility] Last Admin: 12/06/17 13:09 Dose: 5,000 units Hydrochlorothiazide (Microzide) 12.5 mg PO DAILY [facility] Last Admin: 12/06/17 09:28 Dose: 12.5 mg Lactobacillus Acidophilus (Bacid Acidophilus) 1 cap PO BID [facility] Last Admin: 12/06/17 09:28 Dose: 1 cap Lisinopril (Zestril) 10 mg PO DAILY [facility] Last Admin: 08/23/18 09:28 Dose: 10 mg Methylprednisolone (Solu-Medrol) 40 mg IVP Q8 [facility] Montelukast Sodium (Singulair) 10 mg PO HS [facility] Last Admin: 12/05/17 21:31 Dose: 10 mg Pantoprazole Sodium (Protonix Ec Tab) 40 mg PO DAILY [facility] Last Admin: 12/06/17 09:28 Dose: 40 mg Rosuvastatin Calcium (Crestor) 5 mg PO HS [facility] Last Admin: 12/05/17 21:31 Dose: 5 mg Fluticasone/Salmeterol (Advair Diskus 250/50) 1 puff INH RQ12 [facility] Tamsulosin HCl (Flomax) 0.4 mg PO DAILY [facility] Last Admin: 12/06/17 09:28 Dose: 0.4 mg Topiramate (Topamax) 50 mg PO BID [facility] Last Admin: 12/06/17 09:28 Dose: 50 mg - Labs Labs: 12/06/17 08:03 12/06/17 08:03 - Additional Findings Additional findings: - Constitutional Appears: Non-toxic, No Acute Distress, Confused - Head Exam Head Exam: ATRAUMATIC, NORMAL INSPECTION - Eye Exam Eye Exam: EOMI, Normal appearance - ENT Exam ENT Exam: Mucous Membranes Moist - Neck Exam Neck exam: Negative for: Lymphadenopathy, Thyromegaly - Respiratory Exam Respiratory Exam: Wheezes (Bilateral, inspiratory). absent: Chest Wall Tenderness - Cardiovascular Exam Cardiovascular Exam: RRR, +S1, +S2 - GI/Abdominal Exam GI & Abdominal Exam: Bruising noted on abdomen from heparin injections. Normal Bowel Sounds, Soft. absent: Hyperactive Bowel Sounds, Tenderness - Extremities Exam Extremities exam: Positive for: normal inspection, pedal pulses present. Negative for: calf tenderness, pedal edema, tenderness - Back Exam Back exam: NORMAL INSPECTION - Neurological Exam Neurological exam: Alert, CN II-XII Intact, Oriented x3 Additional comments: shuffling gait resting tremor intention tremor neg goddard's Assessment and Plan - Assessment and Plan (Free Text) Assessment: Asthma with possible RLL Pneumonia -WBC 11.4 : neutrophillic *L shift -likely steroid induced -Solumedrol 60mg IV -duonebs PRN -Spiriva 2 puffs -Singulair -Advair diskus PRN -Azithromycin 500mg daily IVP -Rocephin 1g daily IVP -Pulm consulted: Dr. Young - recommending CT chest : Cardiomegaly. Large hiatal hernia with evidence of severe gastroesophageal reflux. Partially imaged indeterminate 3 cm low-density lesion arising from the right upper pole kidney. IV steriods Nebulizer ABG : pCO2 36, pO2 106H, HCO3 23.4, pH 7.4 -ABG Hg and carboxyHg pending -Outpt PFT -flu, strep, mycobac, legionella serologies NEG -blood cultures: No Growth 24hrs Diarrhea x3 -f/u stool cultures -monitor for dehydration Hiatal Hernia -Protonix 80mg Drip -incline bed for sleeping Bilateral Inguinal Hernias L>R: -Surgery consulted: Dr. Quispe -fernando appreciated Essential Tremor: -Dr Aceves Neurology consulted: fernando appreciated -topimax 50mg PO BID Chronic HTN: -hold metoprolol -Lisinopril 10mg PO daily -HCTZ 12.5mg PO daily Hx of Low Vit D -F/u Vit D levels -hold supplement BPH: -Dutoseride .5mg PO daily -Flomax .4mg PO Daily Hx of Cardiac Cath 2003 -Dr Anderson consulted : recommending Echo f/u results and BP control Anxiety -Klonopin 0.5mg PO PRN -lexapro 5mg PO qd Tremor/gait disturbance -neuro consulted Dr Aceves Hx of Gout -allopurinol 100mg PO daily PPX -DVT Risk of 3, age plus possible pna -Hepain 5000u sc q8 -protonix 80mg drip -SCDs -Heart Healthy 2g Na Low carb dispo: pt improving, will d/c home when symptoms resolved <Dhruv Boss - Last Filed: 12/07/17 20:24> Objective - Vital Signs/Intake and Output Vital Signs (last 24 hours): Temp Pulse Resp BP Pulse Ox 98.1 F 98 H 20 131/65 95 12/07/17 15:52 12/07/17 15:52 12/07/17 15:52 12/07/17 15:52 12/07/17 15:52 Intake and Output: 12/07/17 12/08/17 18:59 06:59 Intake Total 1000 Balance 1000 - Medications Medications: Current Medications Albuterol/Ipratropium (Duoneb 3 Mg/0.5 Mg (3 Ml) Ud) 3 ml INH RQ6 PRN PRN Reason: Shortness of Breath Last Admin: 12/06/17 19:24 Dose: 3 ml Allopurinol (Zyloprim) 100 mg PO DAILY [facility] Last Admin: 12/07/17 09:07 Dose: 100 mg Aspirin (Ecotrin) 81 mg PO DAILY [facility] Last Admin: 12/07/17 09:07 Dose: 81 mg Carbidopa/Levodopa (Sinemet) 1 tab PO 0700,1200,1500 [facility] Last Admin: 12/07/17 14:06 Dose: 1 tab Clonazepam (Klonopin) 0.5 mg PO BID PRN PRN Reason: Anxiety Last Admin: 12/06/17 21:40 Dose: 0.5 mg Escitalopram Oxalate (Lexapro) 5 mg PO DAILY [facility] Last Admin: 12/07/17 10:03 Dose: 5 mg Finasteride (Proscar) 5 mg PO DAILY [facility] Last Admin: 12/07/17 09:07 Dose: 5 mg Heparin Sodium (Porcine) (Heparin) 5,000 units SC Q8 [facility] Last Admin: 12/07/17 13:05 Dose: Not Given Hydrochlorothiazide (Microzide) 12.5 mg PO DAILY [facility] Last Admin: 12/07/17 09:07 Dose: 12.5 mg Sodium Chloride (Sodium Chloride 0.9%) 1,000 mls @ 75 mls/hr IV .[id number] [facility] Last Admin: 12/07/17 08:45 Dose: 75 mls/hr Lactobacillus Acidophilus (Bacid Acidophilus) 1 cap PO BID [facility] Last Admin: 12/07/17 17:03 Dose: 1 cap Lisinopril (Zestril) 10 mg PO DAILY [facility] Last Admin: 12/07/17 09:07 Dose: 10 mg Methylprednisolone (Solu-Medrol) 40 mg IVP Q8 [facility] Last Admin: 12/07/17 13:10 Dose: 40 mg Montelukast Sodium (Singulair) 10 mg PO HS [facility] Last Admin: 12/06/17 21:37 Dose: 10 mg Pantoprazole Sodium (Protonix Ec Tab) 40 mg PO DAILY [facility] Last Admin: 12/07/17 09:07 Dose: 40 mg Rosuvastatin Calcium (Crestor) 5 mg PO HS [facility] Last Admin: 12/06/17 21:40 Dose: 5 mg Fluticasone/Salmeterol (Advair Diskus 250/50) 1 puff INH RQ12 [facility] Last Admin: 12/06/17 19:20 Dose: 1 puff Tamsulosin HCl (Flomax) 0.4 mg PO DAILY [facility] Last Admin: 12/07/17 09:07 Dose: 0.4 mg Topiramate (Topamax) 50 mg PO BID [facility] Last Admin: 12/07/17 17:03 Dose: 50 mg - Labs Labs: 12/07/17 08:03 12/07/17 08:03 Attending/Attestation - Attestation I have personally seen and examined this patient.: Yes I have fully participated in the care of the patient.: Yes I have reviewed all pertinent clinical information, including history, physical exam and plan: Yes Notes (Text): 12/07/17 20:24 This is a late entry Care of this patient was gone over in detail with the resident. Dhruv Boss D.O.
--- NOTE | 2017-12-06 15:54 | CP.PCM.PN ---
Subjective - Date & Time of Evaluation Date of Evaluation: 12/06/17 Time of Evaluation: 10:00 - Subjective Subjective: patient seen and examined Still complaining off shortness of breath No wheezing noted Afebrile Seen by surgery CAT scan of chest noted Objective - Vital Signs/Intake and Output Vital Signs (last 24 hours): Temp Pulse Resp BP Pulse Ox 98.7 F 112 H 20 122/70 96 12/06/17 08:20 12/06/17 08:20 12/06/17 08:20 12/06/17 08:20 12/06/17 08:20 Intake and Output: 12/06/17 12/06/17 06:59 18:59 Intake Total 300 240 Balance 300 240 - Medications Medications: Current Medications Albuterol/Ipratropium (Duoneb 3 Mg/0.5 Mg (3 Ml) Ud) 3 ml INH RQ6 PRN PRN Reason: Shortness of Breath Last Admin: 12/05/17 13:34 Dose: 3 ml Allopurinol (Zyloprim) 100 mg PO DAILY [facility] Last Admin: 12/06/17 09:28 Dose: 100 mg Aspirin (Ecotrin) 81 mg PO DAILY [facility] Last Admin: 12/06/17 09:28 Dose: 81 mg Clonazepam (Klonopin) 0.5 mg PO BID PRN PRN Reason: Anxiety Last Admin: 12/05/17 20:40 Dose: 0.5 mg Escitalopram Oxalate (Lexapro) 5 mg PO DAILY [facility] Finasteride (Proscar) 5 mg PO DAILY [facility] Last Admin: 12/06/17 09:28 Dose: 5 mg Heparin Sodium (Porcine) (Heparin) 5,000 units SC Q8 [facility] Last Admin: 12/06/17 13:09 Dose: 5,000 units Hydrochlorothiazide (Microzide) 12.5 mg PO DAILY [facility] Last Admin: 12/06/17 09:28 Dose: 12.5 mg Lactobacillus Acidophilus (Bacid Acidophilus) 1 cap PO BID [facility] Last Admin: 12/06/17 09:28 Dose: 1 cap Lisinopril (Zestril) 10 mg PO DAILY [facility] Last Admin: 12/06/17 09:28 Dose: 10 mg Methylprednisolone (Solu-Medrol) 40 mg IVP Q8 [facility] Montelukast Sodium (Singulair) 10 mg PO HS [facility] Last Admin: 12/05/17 21:31 Dose: 10 mg Pantoprazole Sodium (Protonix Ec Tab) 40 mg PO DAILY [facility] Last Admin: 12/06/17 09:28 Dose: 40 mg Rosuvastatin Calcium (Crestor) 5 mg PO HS [facility] Last Admin: 12/05/17 21:31 Dose: 5 mg Fluticasone/Salmeterol (Advair Diskus 250/50) 1 puff INH RQ12 [facility] Tamsulosin HCl (Flomax) 0.4 mg PO DAILY [facility] Last Admin: 12/06/17 09:28 Dose: 0.4 mg Topiramate (Topamax) 50 mg PO BID [facility] Last Admin: 12/06/17 09:28 Dose: 50 mg - Labs Labs: 12/06/17 08:03 12/06/17 08:03 - Head Exam Head Exam: ATRAUMATIC, NORMOCEPHALIC - ENT Exam ENT Exam: Mucous Membranes Moist - Neck Exam Neck Exam: Normal Inspection - Respiratory Exam Respiratory Exam: Clear to Ausculation Bilateral - Cardiovascular Exam Cardiovascular Exam: REGULAR RHYTHM - GI/Abdominal Exam GI & Abdominal Exam: Soft Assessment and Plan (1) Asthma exacerbation Assessment & Plan: taper steroids Continue nebulizer treatment IV fluids Check lactate level Status: Acute
--- NOTE | 2017-12-06 16:27 | CP.PCM.PN ---
Subjective - Date & Time of Evaluation Date of Evaluation: 12/06/17 Time of Evaluation: 11:00 - Subjective Subjective: PGY1 Progress Note for Neurologist Dr. Aceves. Patient seen and examined at bedside. No acute events overnight. Patient still is complaining of a tremor in bilateral arms. Patient has no other complaints. Patient denies chest pain, headaches, vision changes, trouble walking, weakness in extremities. Objective - Vital Signs/Intake and Output Vital Signs (last 24 hours): Temp Pulse Resp BP Pulse Ox 98.7 F 112 H 20 122/70 96 12/06/17 08:20 12/06/17 08:20 12/06/17 08:20 12/06/17 08:20 12/06/17 08:20 Intake and Output: 12/06/17 12/06/17 06:59 18:59 Intake Total 300 240 Balance 300 240 - Medications Medications: Current Medications Albuterol/Ipratropium (Duoneb 3 Mg/0.5 Mg (3 Ml) Ud) 3 ml INH RQ6 PRN PRN Reason: Shortness of Breath Last Admin: 12/05/17 13:34 Dose: 3 ml Allopurinol (Zyloprim) 100 mg PO DAILY [facility] Last Admin: 12/06/17 09:28 Dose: 100 mg Aspirin (Ecotrin) 81 mg PO DAILY [facility] Last Admin: 12/06/17 09:28 Dose: 81 mg Carbidopa/Levodopa (Sinemet) 1 tab PO 0700,1200,1500 [facility] Clonazepam (Klonopin) 0.5 mg PO BID PRN PRN Reason: Anxiety Last Admin: 12/05/17 20:40 Dose: 0.5 mg Escitalopram Oxalate (Lexapro) 5 mg PO DAILY [facility] Finasteride (Proscar) 5 mg PO DAILY [facility] Last Admin: 12/06/17 09:28 Dose: 5 mg Heparin Sodium (Porcine) (Heparin) 5,000 units SC Q8 [facility] Last Admin: 12/06/17 13:09 Dose: 5,000 units Hydrochlorothiazide (Microzide) 12.5 mg PO DAILY [facility] Last Admin: 12/06/17 09:28 Dose: 12.5 mg Lactobacillus Acidophilus (Bacid Acidophilus) 1 cap PO BID [facility] Last Admin: 12/06/17 09:28 Dose: 1 cap Lisinopril (Zestril) 10 mg PO DAILY [facility] Last Admin: 12/06/17 09:28 Dose: 10 mg Methylprednisolone (Solu-Medrol) 40 mg IVP Q8 [facility] Montelukast Sodium (Singulair) 10 mg PO HS [facility] Last Admin: 12/05/17 21:31 Dose: 10 mg Pantoprazole Sodium (Protonix Ec Tab) 40 mg PO DAILY [facility] Last Admin: 12/06/17 09:28 Dose: 40 mg Rosuvastatin Calcium (Crestor) 5 mg PO HS [facility] Last Admin: 12/05/17 21:31 Dose: 5 mg Fluticasone/Salmeterol (Advair Diskus 250/50) 1 puff INH RQ12 [facility] Tamsulosin HCl (Flomax) 0.4 mg PO DAILY [facility] Last Admin: 12/06/17 09:28 Dose: 0.4 mg Topiramate (Topamax) 50 mg PO BID [facility] Last Admin: 12/06/17 09:28 Dose: 50 mg - Labs Labs: 12/06/17 08:03 12/06/17 08:03 - Constitutional Appears: Non-toxic, No Acute Distress - Head Exam Head Exam: ATRAUMATIC, NORMAL INSPECTION, NORMOCEPHALIC - Eye Exam Eye Exam: Normal appearance, PERRL Pupil Exam: NORMAL ACCOMODATION - Neurological Exam Neurological Exam: Alert, Awake, Oriented x3 Neuro motor strength exam: Left Upper Extremity: 5, Right Upper Extremity: 5, Left Lower Extremity: 5, Right Lower Extremity: 5 Additional comments: + for pill rolling tremor + Cogwheel rigidity + Slow, shuffling gait Above symptoms were not present on initial examination Assessment and Plan - Assessment and Plan (Free Text) Assessment: Assessment & Plan discussed with Dr. Aceves: 77 male w/ PMHx of asthma, HTN, Cardiac cath in 2004, BPH admitted to hospital for acute asthma exacerbation. Neurology consulted for patient having hand tremor for the past 3 months. 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
[2017-12-06 17:38] LABS: VENOUS BLOOD GAS BASE EXCESS 0.6 mmol/L (0.0-2.0); VENOUS BLOOD GAS PCO2 36 mmHg (40-60); VENOUS BLOOD GAS PO2 61 mm/Hg (30-55); VENOUS BLOOD PH 7.44 (7.32-7.43)
[2017-12-06] MEDS: Sodium Chloride 0.9% 1,000 ML IV SCH (18:17)
[2017-12-06] MEDS: Albuterol-Ipratrop 3 mg / 0.5 (3 ml) UD INH PRN (19:24)
[2017-12-06] MEDS ORDERED: Fluticasone-Salmeterol 250-50mcg Diskus INH SCH (20:00)
[2017-12-07] MEDS: MethylPREDNISolone 40 mg Vial IVP SCH ×2 (05:30→13:10)
[2017-12-07 08:29] LABS: BASO % 0.1 % (0.0-2.0); HEMOGLOBIN 13.9 g/dL (12.0-18.0); LYMPH # 0.7 K/uL (1.0-4.3); LYMPH % 6.7 % (20.0-40.0); MEAN CELL VOLUME 94.4 fL (80.0-94.0); MEAN PLATELET VOLUME 8.7 fL (7.2-11.7); MONO # 0.7 K/uL (0.0-0.8); MONO % 6.6 % (0.0-10.0); NEUT # 9.3 K/uL (1.8-7.0); NEUT % 86.6 % (50.0-75.0); NRBC % 0.1 % (0.0-2.0); PLATELET COUNT 223 K/uL (130-400); RBC 4.22 Mil/uL (4.40-5.90); RED CELL DISTRIBUTION WIDTH 12.9 % (11.5-14.5); WHITE BLOOD COUNT 10.7 K/uL (4.8-10.8)
[2017-12-07 08:32] VITALS: TEMP 98.1; O2SAT 95
[2017-12-07] MEDS: Sodium Chloride 0.9% 1,000 ML IV SCH (08:45)
[2017-12-07] MEDS: Lactobacillus Acidophilus 500 MU Cap PO SCH ×2 (09:07→17:03)
[2017-12-07] MEDS: Pantoprazole 40 mg EC Tab PO SCH (09:07)
[2017-12-07 09:47] LABS: ALB/GLOB RATIO 1.2 (1.0-2.1); ALBUMIN 3.6 g/dL (3.5-5.0); ALT/SGPT 22 U/L (21-72); AST/SGOT 63 U/L (17-59); BLOOD UREA NITROGEN 39 mg/dL (9-20); CALCIUM 8.1 mg/dl (8.6-10.4); GFR NON-AFRICAN AMERICAN 59
[2017-12-07 10:42] LABS: BANDS 1 % (0-2); LYMPHOCYTE 7 % (20-40); MONOCYTE 6 % (0-10); NEUTROPHIL 86 % (50-75); PLATELET ESTIMATE NORMAL (NORMAL); TOTAL CELLS COUNTED 100
--- NOTE | 2017-12-07 10:51 | CP.PCM.DIS ---
<Jerald Sarmientoophe - Last Filed: 12/07/17 17:33> Provider - Provider Date of Admission: 12/03/17 05:24 Attending physician: Dhruv Boss MD Time Spent in preparation of Discharge (in minutes): 45 Diagnosis - Discharge Diagnosis (1) Tremors of nervous system Status: Chronic (2) BPH (benign prostatic hyperplasia) Status: Chronic (3) CAD (coronary artery disease) Status: Chronic (4) Chr obstructive pulmonary disease w/ acute lower respiratory infxn Status: Chronic (5) HTN (hypertension) Status: Chronic (6) Asthma exacerbation Status: Resolved Hospital Course - Lab Results Lab Results: Micro Results 12/03/17 12:30 Blood-Venous Blood Culture - Preliminary NO GROWTH AFTER 3 DAYS 12/03/17 12:30 Blood-Venous Blood Culture - Preliminary NO GROWTH AFTER 3 DAYS Most Recent Lab Values WBC 10.7 K/uL (4.8-10.8) 12/07/17 08:03 RBC 4.22 Mil/uL (4.40-5.90) L 12/07/17 08:03 Hgb 13.9 g/dL (12.0-18.0) 12/07/17 08:03 Hct 39.9 % (35.0-51.0) 12/07/17 08:03 MCV 94.4 fL (80.0-94.0) H 12/07/17 08:03 MCH 33.0 pg (27.0-31.0) H 12/07/17 08:03 MCHC 35.0 g/dL (33.0-37.0) 12/07/17 08:03 RDW 12.9 % (11.5-14.5) 12/07/17 08:03 Plt Count 223 K/uL (130-400) 12/07/17 08:03 MPV 8.7 fL (7.2-11.7) 12/07/17 08:03 Neut % (Auto) 86.6 % (50.0-75.0) H 12/07/17 08:03 Lymph % (Auto) 6.7 % (20.0-40.0) L 12/07/17 08:03 [place] % (Auto) 6.6 % (0.0-10.0) 12/07/17 08:03 Eos % (Auto) 0.0 % (0.0-4.0) 12/07/17 08:03 Baso % (Auto) 0.1 % (0.0-2.0) 12/07/17 08:03 Neut # (Auto) 9.3 K/uL (1.8-7.0) H 12/07/17 08:03 Lymph # (Auto) 0.7 K/uL (1.0-4.3) L 12/07/17 08:03 [place] # (Auto) 0.7 K/uL (0.0-0.8) 12/07/17 08:03 Eos # (Auto) 0.0 K/uL (0.0-0.7) 12/07/17 08:03 Baso # (Auto) 0.0 K/uL (0.0-0.2) 12/07/17 08:03 Neutrophils % (Manual) 86 % (50-75) H 12/07/17 08:03 Band Neutrophils % 1 % (0-2) 12/07/17 08:03 Lymphocytes % (Manual) 7 % (20-40) L 12/07/17 08:03 Monocytes % (Manual) 6 % (0-10) 12/07/17 08:03 Platelet Estimate Normal (NORMAL) 12/07/17 08:03 RBC Morphology Normal 12/07/17 08:03 D-Dimer, Quantitative 231 ng/mlDDU (0-243) 12/03/17 13:24 Puncture Site Lb 12/03/17 11:50 pCO2 36 mm/Hg (35-45) 12/03/17 11:50 pO2 61 mm/Hg (30-55) H 12/06/17 17:30 HCO3 23.4 mmol/L (21-28) 12/03/17 11:50 ABG pH 7.40 (7.35-7.45) 12/03/17 11:50 ABG Total CO2 23.4 mmol/L (22-28) 12/03/17 11:50 ABG O2 Saturation 99.0 % (95-98) H 12/03/17 11:50 ABG Base Excess -2.0 mmol/L (-2.0-3.0) 12/03/17 11:50 Luis E Test Na 12/03/17 11:50 VBG pH 7.44 (7.32-7.43) H 12/06/17 17:30 VBG pCO2 36 mmHg (40-60) L 12/06/17 17:30 VBG HCO3 25.2 mmol/L 12/06/17 17:30 VBG Total CO2 25.6 mmol/L (22-28) 12/06/17 17:30 VBG O2 Sat (Calc) 93.9 % (40-65) H 12/06/17 17:30 VBG Base Excess 0.6 mmol/L (0.0-2.0) 12/06/17 17:30 VBG Potassium 3.3 mmol/L (3.6-5.2) L 12/06/17 17:30 Sodium 138.0 mmol/l (132-148) 12/06/17 17:30 Chloride 106.0 mmol/L (98-107) 12/06/17 17:30 Glucose 146 mg/dl (75-110) H 12/06/17 17:30 Lactate 2.3 mmol/L (0.7-2.1) H 12/06/17 17:30 Liter Flow 3.0 12/03/17 11:50 FiO2 21.0 % 12/06/17 17:30 Sodium 142 mmol/L (132-148) 12/07/17 08:03 Potassium 3.5 mmol/L (3.6-5.2) L 12/07/17 08:03 Chloride 105 mmol/L (98-107) 12/07/17 08:03 Carbon Dioxide 23 mmol/L (22-30) 12/07/17 08:03 Anion Gap 17 (10-20) 12/07/17 08:03 BUN 39 mg/dL (9-20) H 12/07/17 08:03 Creatinine 1.2 mg/dL (0.8-1.5) 12/07/17 08:03 Est GFR ( Amer) > 60 12/07/17 08:03 Est GFR (Non-Af Amer) 59 12/07/17 08:03 Random Glucose 120 mg/dL (75-110) H 12/07/17 08:03 Calcium 8.1 mg/dl (8.6-10.4) L 12/07/17 08:03 Phosphorus 4.9 mg/dL (2.5-4.5) H 12/07/17 08:03 Magnesium 2.5 mg/dL (1.6-2.3) H 12/07/17 08:03 Total Bilirubin 0.6 mg/dL (0.2-1.3) 12/07/17 08:03 AST 63 U/L (17-59) H D 12/07/17 08:03 ALT 22 U/L (21-72) 12/07/17 08:03 Alkaline Phosphatase 48 U/L (38-126) 12/07/17 08:03 Troponin I < 0.0120 ng/mL (0.00-0.120) 12/03/17 03:08 NT-Pro-B Natriuret Pep 73.5 pg/mL (0-900) 12/03/17 03:08 Total Protein 6.6 g/dL (6.3-8.3) 12/07/17 08:03 Albumin 3.6 g/dL (3.5-5.0) 12/07/17 08:03 Globulin 3.0 gm/dL (2.2-3.9) 12/07/17 08:03 Albumin/Globulin Ratio 1.2 (1.0-2.1) 12/07/17 08:03 Triglycerides 178 mg/dL (0-149) H 12/03/17 03:08 Cholesterol 151 mg/dL (0-199) 12/03/17 03:08 LDL Cholesterol Direct 71 mg/dL (0-129) 12/03/17 03:08 HDL Cholesterol 31 mg/dL (30-70) 12/03/17 03:08 25-OH Vitamin D Total 58.3 NG/ML (30.0-100.0) 12/04/17 07:52 Free T4 0.95 ng/dL (0.78-2.19) 12/04/17 07:52 TSH 3rd Generation 0.43 mIU/L (0.46-4.68) L 12/04/17 07:52 Venous Blood Potassium 3.3 mmol/L (3.6-5.2) L 12/06/17 17:30 Digoxin 0.7 ng/mL (0.8-2.0) L 12/03/17 03:39 Influenza Typ A,B (EIA) Negative for flu a/b (NEGATIVE) 12/03/17 12:30 Ur L.pneumophila Ag Negative (NEGATIVE) 12/03/17 13:31 Mycoplasma pneumon IgM Negative (NEGATIVE) 12/03/17 09:52 - Hospital Course Hospital Course: 77yo male with a PMH of asthma, anxiety, HTN, Cardiac cath in 2004, BPH, presents to the ED with 3 days of worsening cough and SOB. Pt says he was cleaning his house with the symptoms starting soon after. Pt reports white phlegm with the cough and a non-radiating substernal chest tightness worse with exertion. Pt has been short of breath for the past three days and has been waiting to see him PMD for an appointment on 12/04 but presented to the ER today. Pt tried using his "pump and machine" but got little relief. Pt is unable to provide a thorough history, he is not able to elaborate on his prior procedures or PMHx. Pt is only aware of taking his "daytime and night pills" and cannot name them. Pt provided a number to his pharmacy that is no longer in business. 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 Proxy: Rayray Sevilla [id number] HOSPITAL COURSE: Pt treated for asthma exacerbation and evaluated for tremors. Pt given for asthma: duonebs prn, solumedrol 125 first dose, then 60mg. monteleukast 10mg, advair 250 disk, BPH: finasteride 5mg PO, flomax .4mg ?pna: azithro 500mg, rocephin 1gg cad: lisinopril 10mg, HCTZ 12.5mg anxiety: Klonopin .4mg Gout: allopurinol 100mg Pt symptoms improved greatly over course of stay. pt was seen by neurology for tremor. r/o parkinsons. Pt started on therapy carbidopa/levodopa 25/100 1 tab TID Diagnostics and Imagin/20 CXR: biapical pleural granulation, cardiomegaly, right hilsr prominence, calcification at aortic knob EKG: NSR Echo: neg INSTRUCTIONS Pt is to fill all prescriptions on his way home as written: allopurinol 100mg 1 tab 8am daily #30 aspirin 81mg po daily 8am #30 carbidopa/levodopa 25/100 PO TID 8am,12pm, 8pm #90 Leaxpro 5mg PO daily #30 Clonazapam 0.5mg PO daily Proscar 5mg PO daily 8am #30 Adviar 250/59 diskus 1 puf BID HCTZ 12.5 mg 1 tab po daily 8am #30 Lisinopril 10mg po daily 2pm #30 singulair 10mg po daily 8am #30 omeprazole 20mg po daily 8pm #30 metoprolol ER 50mg po daily 8am #30 atorvastatin 10mg po daily 8pm #30 flomax 0.4mg 1 tab po daily 2pm Prednisone Taper 10mg, 5tabs 12/08, 4tabs 12/09, 3tabs 12/10, 2tabs 12/11, 1tab at 2pm albuterol/ipatropium (2.5mg/0.5mg)/3ml 1 nebulizer machine every 6hrs #1 box pt is to schedule follow up with primary care Dr Ricardo montano [phone] for appt within [address] silva pt can obtain referral to neurology Dr Aceves [phone] for parkinsons workup. Pt should follow up with dr munguia [phone] for hernia. Pt should also obtain referral for a dye tank tender. Bring all meds with you to your appt with dr silav. Discharge Exam - Head Exam Head Exam: ATRAUMATIC, NORMAL INSPECTION, NORMOCEPHALIC Discharge Plan - Discharge Medications Prescriptions: Albuterol 0.083% [Albuterol 0.083% Inhal Deidre (2.5 mg/3 ml) UD] 2.5 mg IH PRN PRN #1 neb PRN Reason: Cough Allopurinol [Zyloprim] 100 mg PO DAILY #30 tab Aspirin [Ecotrin] 81 mg PO DAILY #30 tabec Carbidopa/Levodopa 25/100 mg [Sinemet] 1 tab PO 0700,1200,1500 #90 tab clonazePAM [Klonopin] 0.5 mg PO BID PRN #60 tab PRN Reason: Anxiety Escitalopram [Lexapro] 5 mg PO DAILY #30 tab Finasteride [Proscar] 5 mg PO DAILY #30 tab Fluticasone/Salmeterol 250/50 [Advair Diskus 250/50] 1 puff INH RQ12 #1 puff hydroCHLOROthiazide [Microzide] 12.5 mg PO DAILY #30 cap Lisinopril [Zestril] 10 mg PO DAILY #30 tab Montelukast [Singulair] 10 mg PO HS #30 tab Tamsulosin [Flomax] 0.4 mg PO DAILY #30 cap - Follow Up Plan Condition: GOOD Disposition: HOME/ ROUTINE Instructions: Heart Failure, Adult (DC), Benign Prostatic Hyperplasia ( Enlarged Prostate) (DC), Coronary Heart Disease (DC) Additional Instructions: INSTRUCTIONS Pt is to fill all prescriptions on his way home as written: allopurinol 100mg 1 tab 8am daily #30 aspirin 81mg po daily 8am #30 carbidopa/levodopa 25/100 PO TID 8am,12pm, 8pm #90 Leaxpro 5mg PO daily #30 Clonazapam 0.5mg PO daily Proscar 5mg PO daily 8am #30 Adviar 250/59 diskus 1 puf BID HCTZ 12.5 mg 1 tab po daily 8am #30 Lisinopril 10mg po daily 2pm #30 singulair 10mg po daily 8am #30 omeprazole 20mg po daily 8pm #30 metoprolol ER 50mg po daily 8am #30 atorvastatin 10mg po daily 8pm #30 flomax 0.4mg 1 tab po daily 2pm Prednisone Taper 10mg, 5tabs 12/08, 4tabs 12/09, 3tabs 12/10, 2tabs 12/11, 1tab at 2pm albuterol/ipatropium (2.5mg/0.5mg)/3ml 1 nebulizer machine every 6hrs #1 box pt is to schedule follow up with primary care Dr Ricardo montano [phone] for appt within [address] silva pt can obtain referral to neurology Dr Aceves [phone] for parkinsons workup. Pt should follow up with dr munguia [phone] for hernia. Pt should also obtain referral for a dye tank tender. Bring all meds with you to your appt with dr silva. Referrals: Andres Silva MD [Staff Provider] - <Dhruv Boss - Last Filed: 12/07/17 20:23> Provider - Provider Date of Admission: 12/03/17 05:24 Attending physician: Dhruv Boss MD Time Spent in preparation of Discharge (in minutes): 40 Hospital Course - Lab Results Lab Results: Micro Results 12/03/17 12:30 Blood-Venous Blood Culture - Preliminary NO GROWTH AFTER 4 DAYS 12/03/17 12:30 Blood-Venous Blood Culture - Preliminary NO GROWTH AFTER 4 DAYS Most Recent Lab Values WBC 10.7 K/uL (4.8-10.8) 12/07/17 08:03 RBC 4.22 Mil/uL (4.40-5.90) L 12/07/17 08:03 Hgb 13.9 g/dL (12.0-18.0) 12/07/17 08:03 Hct 39.9 % (35.0-51.0) 12/07/17 08:03 MCV 94.4 fL (80.0-94.0) H 12/07/17 08:03 MCH 33.0 pg (27.0-31.0) H 12/07/17 08:03 MCHC 35.0 g/dL (33.0-37.0) 12/07/17 08:03 RDW 12.9 % (11.5-14.5) 12/07/17 08:03 Plt Count 223 K/uL (130-400) 12/07/17 08:03 MPV 8.7 fL (7.2-11.7) 12/07/17 08:03 Neut % (Auto) 86.6 % (50.0-75.0) H 12/07/17 08:03 Lymph % (Auto) 6.7 % (20.0-40.0) L 12/07/17 08:03 [place] % (Auto) 6.6 % (0.0-10.0) 12/07/17 08:03 Eos % (Auto) 0.0 % (0.0-4.0) 12/07/17 08:03 Baso % (Auto) 0.1 % (0.0-2.0) 12/07/17 08:03 Neut # (Auto) 9.3 K/uL (1.8-7.0) H 12/07/17 08:03 Lymph # (Auto) 0.7 K/uL (1.0-4.3) L 12/07/17 08:03 [place] # (Auto) 0.7 K/uL (0.0-0.8) 12/07/17 08:03 Eos # (Auto) 0.0 K/uL (0.0-0.7) 12/07/17 08:03 Baso # (Auto) 0.0 K/uL (0.0-0.2) 12/07/17 08:03 Neutrophils % (Manual) 86 % (50-75) H 12/07/17 08:03 Band Neutrophils % 1 % (0-2) 12/07/17 08:03 Lymphocytes % (Manual) 7 % (20-40) L 12/07/17 08:03 Monocytes % (Manual) 6 % (0-10) 12/07/17 08:03 Platelet Estimate Normal (NORMAL) 12/07/17 08:03 RBC Morphology Normal 12/07/17 08:03 D-Dimer, Quantitative 231 ng/mlDDU (0-243) 12/03/17 13:24 Puncture Site Lb 12/03/17 11:50 pCO2 36 mm/Hg (35-45) 12/03/17 11:50 pO2 61 mm/Hg (30-55) H 12/06/17 17:30 HCO3 23.4 mmol/L (21-28) 12/03/17 11:50 ABG pH 7.40 (7.35-7.45) 12/03/17 11:50 ABG Total CO2 23.4 mmol/L (22-28) 12/03/17 11:50 ABG O2 Saturation 99.0 % (95-98) H 12/03/17 11:50 ABG Base Excess -2.0 mmol/L (-2.0-3.0) 12/03/17 11:50 Luis E Test Na 12/03/17 11:50 VBG pH 7.44 (7.32-7.43) H 12/06/17 17:30 VBG pCO2 36 mmHg (40-60) L 12/06/17 17:30 VBG HCO3 25.2 mmol/L 12/06/17 17:30 VBG Total CO2 25.6 mmol/L (22-28) 12/06/17 17:30 VBG O2 Sat (Calc) 93.9 % (40-65) H 12/06/17 17:30 VBG Base Excess 0.6 mmol/L (0.0-2.0) 12/06/17 17:30 VBG Potassium 3.3 mmol/L (3.6-5.2) L 12/06/17 17:30 Sodium 138.0 mmol/l (132-148) 12/06/17 17:30 Chloride 106.0 mmol/L (98-107) 12/06/17 17:30 Glucose 146 mg/dl (75-110) H 12/06/17 17:30 Lactate 2.3 mmol/L (0.7-2.1) H 12/06/17 17:30 Liter Flow 3.0 12/03/17 11:50 FiO2 21.0 % 12/06/17 17:30 Sodium 142 mmol/L (132-148) 12/07/17 08:03 Potassium 3.5 mmol/L (3.6-5.2) L 12/07/17 08:03 Chloride 105 mmol/L (98-107) 12/07/17 08:03 Carbon Dioxide 23 mmol/L (22-30) 12/07/17 08:03 Anion Gap 17 (10-20) 12/07/17 08:03 BUN 39 mg/dL (9-20) H 12/07/17 08:03 Creatinine 1.2 mg/dL (0.8-1.5) 12/07/17 08:03 Est GFR ( Amer) > 60 12/07/17 08:03 Est GFR (Non-Af Amer) 59 12/07/17 08:03 Random Glucose 120 mg/dL (75-110) H 12/07/17 08:03 Lactic Acid 2.1 mmol/L (0.7-2.1) 12/07/17 11:27 Calcium 8.1 mg/dl (8.6-10.4) L 12/07/17 08:03 Phosphorus 4.9 mg/dL (2.5-4.5) H 12/07/17 08:03 Magnesium 2.5 mg/dL (1.6-2.3) H 12/07/17 08:03 Total Bilirubin 0.6 mg/dL (0.2-1.3) 12/07/17 08:03 AST 63 U/L (17-59) H D 12/07/17 08:03 ALT 22 U/L (21-72) 12/07/17 08:03 Alkaline Phosphatase 48 U/L (38-126) 12/07/17 08:03 Troponin I < 0.0120 ng/mL (0.00-0.120) 12/03/17 03:08 NT-Pro-B Natriuret Pep 73.5 pg/mL (0-900) 12/03/17 03:08 Total Protein 6.6 g/dL (6.3-8.3) 12/07/17 08:03 Albumin 3.6 g/dL (3.5-5.0) 12/07/17 08:03 Globulin 3.0 gm/dL (2.2-3.9) 12/07/17 08:03 Albumin/Globulin Ratio 1.2 (1.0-2.1) 12/07/17 08:03 Triglycerides 178 mg/dL (0-149) H 12/03/17 03:08 Cholesterol 151 mg/dL (0-199) 12/03/17 03:08 LDL Cholesterol Direct 71 mg/dL (0-129) 12/03/17 03:08 HDL Cholesterol 31 mg/dL (30-70) 12/03/17 03:08 25-OH Vitamin D Total 58.3 NG/ML (30.0-100.0) 12/04/17 07:52 Free T4 0.95 ng/dL (0.78-2.19) 12/04/17 07:52 TSH 3rd Generation 0.43 mIU/L (0.46-4.68) L 12/04/17 07:52 Venous Blood Potassium 3.3 mmol/L (3.6-5.2) L 12/06/17 17:30 Digoxin 0.7 ng/mL (0.8-2.0) L 12/03/17 03:39 C. difficile Ag & Toxin Negative (NEGATIVE) 12/07/17 08:00 Influenza Typ A,B (EIA) Negative for flu a/b (NEGATIVE) 12/03/17 12:30 Ur L.pneumophila Ag Negative (NEGATIVE) 12/03/17 13:31 Mycoplasma pneumon IgM Negative (NEGATIVE) 12/03/17 09:52 Attending/Attestation - Attestation I have personally seen and examined this patient.: Yes I have fully participated in the care of the patient.: Yes I have reviewed all pertinent clinical information, including history, physical exam and plan: Yes Notes (Text): 12/07/17 20:21 Patient was seen and examined with patient's nurse who spoke Kinyarwanda. Respiratory Exam completely unremarkable. Pre and Post oxygen saturation 6 minute walk performed by medical student prior to my exam showed SpO2 above 92%. NO signs of respiratory distress Instructions gone over in detail with patient Dhruv Boss D.O.
[2017-12-07] MEDS ORDERED: Potassium Chloride 20 mEq ER Tab PO STA (10:55)
--- NOTE | 2017-12-07 13:05 | CP.PCM.PN ---
Subjective - Date & Time of Evaluation Date of Evaluation: 12/07/17 Time of Evaluation: 08:20 - Subjective Subjective: patient seen and examined Sitting comfortably in no acute distress Afebrile Very anxious Stable from pulmonary standpoint Objective - Vital Signs/Intake and Output Vital Signs (last 24 hours): Temp Pulse Resp BP Pulse Ox 98.1 F 115 H 20 143/72 95 12/07/17 08:31 12/07/17 08:31 12/07/17 08:31 12/07/17 08:31 12/07/17 08:31 Intake and Output: 12/07/17 12/07/17 06:59 18:59 Intake Total 1590 Output Total 900 Balance 690 - Medications Medications: Current Medications Albuterol/Ipratropium (Duoneb 3 Mg/0.5 Mg (3 Ml) Ud) 3 ml INH RQ6 PRN PRN Reason: Shortness of Breath Last Admin: 12/06/17 19:24 Dose: 3 ml Allopurinol (Zyloprim) 100 mg PO DAILY [facility] Last Admin: 12/07/17 09:07 Dose: 100 mg Aspirin (Ecotrin) 81 mg PO DAILY [facility] Last Admin: 12/07/17 09:07 Dose: 81 mg Carbidopa/Levodopa (Sinemet) 1 tab PO 0700,1200,1500 [facility] Last Admin: 12/07/17 11:29 Dose: 1 tab Clonazepam (Klonopin) 0.5 mg PO BID PRN PRN Reason: Anxiety Last Admin: 12/06/17 21:40 Dose: 0.5 mg Escitalopram Oxalate (Lexapro) 5 mg PO DAILY [facility] Last Admin: 12/07/17 10:03 Dose: 5 mg Finasteride (Proscar) 5 mg PO DAILY [facility] Last Admin: 12/07/17 09:07 Dose: 5 mg Heparin Sodium (Porcine) (Heparin) 5,000 units SC Q8 [facility] Last Admin: 12/07/17 05:30 Dose: 5,000 units Hydrochlorothiazide (Microzide) 12.5 mg PO DAILY [facility] Last Admin: 12/07/17 09:07 Dose: 12.5 mg Sodium Chloride (Sodium Chloride 0.9%) 1,000 mls @ 75 mls/hr IV .[id number] [facility] Last Admin: 12/07/17 08:45 Dose: 75 mls/hr Lactobacillus Acidophilus (Bacid Acidophilus) 1 cap PO BID [facility] Last Admin: 12/07/17 09:07 Dose: 1 cap Lisinopril (Zestril) 10 mg PO DAILY [facility] Last Admin: 12/07/17 09:07 Dose: 10 mg Methylprednisolone (Solu-Medrol) 40 mg IVP Q8 [facility] Last Admin: 12/07/17 05:30 Dose: 40 mg Montelukast Sodium (Singulair) 10 mg PO HS [facility] Last Admin: 12/06/17 21:37 Dose: 10 mg Pantoprazole Sodium (Protonix Ec Tab) 40 mg PO DAILY [facility] Last Admin: 12/07/17 09:07 Dose: 40 mg Rosuvastatin Calcium (Crestor) 5 mg PO HS [facility] Last Admin: 12/06/17 21:40 Dose: 5 mg Fluticasone/Salmeterol (Advair Diskus 250/50) 1 puff INH RQ12 [facility] Last Admin: 12/06/17 19:20 Dose: 1 puff Tamsulosin HCl (Flomax) 0.4 mg PO DAILY [facility] Last Admin: 12/07/17 09:07 Dose: 0.4 mg Topiramate (Topamax) 50 mg PO BID [facility] Last Admin: 12/07/17 09:07 Dose: 50 mg - Labs Labs: 12/07/17 08:03 12/07/17 08:03 Assessment and Plan (1) Asthma exacerbation Status: Resolved
[2017-12-07 15:53] VITALS: BP 131/65; PULSE 98
== END 2017-12-07 20:30 | disposition home or self-care (01) | DRG 190 ==
LOC: C.ER 02:39 → C.9E 05:24 → C.6T 05:53 → C.3T 09:23
PROVIDERS: ADMIT Family Medicine; ATTEND Family Medicine
DX: J44.0 Chronic obstructive pulmonary disease with (acute) lower respiratory infection (principal); J18.9 Pneumonia, unspecified organism; J45.901 Unspecified asthma with (acute) exacerbation; F41.9 Anxiety disorder, unspecified; G25.0 Essential tremor; G20 Parkinson's disease; I10 Essential (primary) hypertension; I25.10 Atherosclerotic heart disease of native coronary artery without angina pectoris; M10.9 Gout, unspecified; N40.0 Benign prostatic hyperplasia without lower urinary tract symptoms; T38.0X5A Adverse effect of glucocorticoids and synthetic analogues, initial encounter